=== PATIENT | male | born 1950 | race Caucasian/White ===

== ENCOUNTER 2022-02-23 11:51 | Observation (INO) | payer MEDICARE, OTHER, SELFPAY ==
[2022-02-23] VITALS (21 sets, daily range): BP systolic 122–153; BP diastolic 82–103; PULSE 69–80; RESP 18–20; TEMP 36.2–36.6; O2SAT 94–99; BMI 35.6; BMI 37.5
--- NOTE | 2022-02-23 12:51 | ED.GENADULT ---
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 He has been taking an [id number] supplement to help with weight loss, and he has lost about 28 lb over the last few weeks. The patient denies chest pain breathing problem he is asymptomatic at present other than he noticed some blurry vision and he feels fatigued. He has had no chest pain, no hematuria, he has had an elevated blood sugar that he noted on a family members glucometer that was 300 within the last few days and he was 483 today. He has not had any infectious symptoms, is not on steroids. Patient has had a history kidney stones, and gout, obstructive sleep apnea , hypertension, elevated BMI. Related Data Home Medications Medication Instructions Recorded Confirmed allopurinol 300 mg tablet 300 mg PO DAILY 02/01/22 02/23/22 amlodipine 10 mg tablet 10 mg PO DAILY 02/01/22 02/23/22 ascorbic acid (vitamin C) 1,000 mg 1 g PO DAILY 02/01/22 02/23/22 tablet aspirin 81 mg tablet,delayed 81 mg PO DAILY 02/01/22 02/23/22 release atenolol 50 mg tablet 50 mg PO BID 02/01/22 02/23/22 doxazosin 8 mg tablet 8 mg PO HS 02/01/22 02/23/22 flaxseed oil 1,000 mg capsule 1,000 mg PO DAILY 02/01/22 02/23/22 furosemide 20 mg tablet 20 mg PO DAILY 02/01/22 02/23/22 losartan 50 mg tablet 50 mg PO BID 02/01/22 02/23/22 multivitamin with iron (Daily 1 tab PO DAILY 02/01/22 02/23/22 Multiple Vitamins with Iron tablet) omeprazole 20 mg capsule,delayed 20 mg PO DAILY 02/01/22 02/23/22 release GOLO RELEASE 02/23/22 Previous Rx's Medication Instructions Recorded fluorouracil 5 % topical cream 1 applic topical ONCE #40 grams 02/01/22 Allergies Allergy/AdvReac Type Severity Reaction Status Date / Time hydrochlorothiazide Allergy Intermediate Unknown Verified 02/23/22 12:29 Angiotensin-converting Allergy Intermediate Unknown Uncoded 01/12/22 09:40 enzyme inhibitor Sulfa drugs Allergy Mild Unknown Uncoded 01/12/22 09:40 Review of Systems Status of ROS: Reports: 10 or more systems reviewed and unremarkable except as noted in History and below [facility] Medical History History of renal calculi (05/13/13) Surgical History History of sinus surgery (2007) History of tonsillectomy Status post trigger finger release (2007) Social History Smoking Status: Never smoker Do you use any of these nicotine containing products: None Second hand tobacco smoke exposure: No How often do you have a drink containing alcohol: monthly or less How many standard drinks containing alcohol do you have on a typical day: 1 or 2 How often do you have six or more drinks on one occasion: Never AUDIT-C Alcohol total score: 1 Non-prescribed substance use: denies use Caffeine: No Exam Narrative: Exam Narrative: Objective: In general patient is no apparent distress, pleasant alert orient x3 Noncyanotic HEENT is unremarkable no facial asymmetry Neck is supple Chest is clear Heart rhythm rate rhythm regular without murmur Abdomen obese benign nontender Extremities are no edema neurologic nonfocal Good peripheral perfusion noted Skin warm and dry Const: Vital Signs, click to edit/add: Vital Signs - 24 hr 02/23/22 12:13 02/23/22 13:04 02/23/22 13:05 Temperature 97.1 F L Pulse Rate 78 70 Pulse Rate [Right Pulse Oximeter] 80 Respiratory Rate 18 Blood Pressure 131/103 H Blood Pressure [Ri ght Upper Arm] 133/82 Pulse Oximetry 98 97 97 Oxygen Delivery Me thod Room Air 02/23/22 13:31 02/23/22 13:32 02/23/22 13:33 Temperature Pulse Rate 76 76 71 Pulse Rate [Right Pulse Oximeter] Respiratory Rate Blood Pressure 131/99 H Blood Pressure [Ri ght Upper Arm] Pulse Oximetry 95 96 96 Oxygen Delivery Me thod 02/23/22 14:01 02/23/22 14:02 02/23/22 14:32 Temperature Pulse Rate 75 77 70 Pulse Rate [Right Pulse Oximeter] Respiratory Rate Blood Pressure 122/94 H 134/88 Blood Pressure [Ri ght Upper Arm] Pulse Oximetry 96 96 96 Oxygen Delivery Me thod 02/23/22 14:33 02/23/22 15:01 02/23/22 15:02 Temperature Pulse Rate 79 78 78 Pulse Rate [Right Pulse Oximeter] Respiratory Rate Blood Pressure 130/95 H Blood Pressure [Ri ght Upper Arm] Pulse Oximetry 98 97 96 Oxygen Delivery Me thod 02/23/22 15:31 02/23/22 15:32 Temperature Pulse Rate 75 79 Pulse Rate [Right Pulse Oximeter] Respiratory Rate Blood Pressure 141/90 H Blood Pressure [Ri ght Upper Arm] Pulse Oximetry 96 98 Oxygen Delivery Me thod Course Vital Signs Vital signs: Initial Vital Signs Temperature 97.1 F L 02/23/22 12:13 Temperature Source Temporal Artery Scan 02/23/22 12:13 Pulse Rate 80 02/23/22 12:13 Pulse Rhythm 02/23/22 12:13 Respiratory Rate 18 02/23/22 12:13 Blood Pressure 133/82 02/23/22 12:13 Blood Pressure Mean 99 02/23/22 12:13 Blood Pressure Position Sitting 02/23/22 12:13 Pulse Oximetry 98 02/23/22 12:13 Oxygen Delivery Method 02/23/22 12:13 Vital Signs Temperature 97.1 F L 02/23/22 12:13 Pulse Rate 80 02/23/22 12:13 Respiratory Rate 18 02/23/22 12:13 Blood Pressure 133/82 02/23/22 12:13 Pulse Oximetry 98 02/23/22 12:13 Oxygen Delivery Method 02/23/22 12:13 Temperature 97.9 F 02/23/22 16:57 Pulse Rate 79 02/23/22 16:57 Respiratory Rate 20 02/23/22 16:57 Blood Pressure 153/95 H 02/23/22 16:57 Pulse Oximetry 94 02/23/22 17:23 Oxygen Delivery Method 02/23/22 17:23 Medical Decision Making MDM Narrative Medical decision making narrative: Patient is demonstrating classic symptoms for new onset diabetes mellitus, elevated blood sugar, likely mildly dehydrated. He has noticed some visual changes, polyphagia polydipsia polyuria. Will rehydrate with couple L of saline, EKG labs COVID troponin electrolytes CBC, will consider insulin usage after rehydration. Will check blood sugar venous today. This supplement he was taking should be stopped. He does have an appointment to see Dr. Thomas in the next short appeared of time. Addendum: Patient's labs look reassuring his EKG looks reassuring, his troponin is negative, his renal function is good, his blood sugars elevated at 551. After 2 L fluid patient will get 5 units of regular insulin IV. Also noted he has 50 red cells and 100 white cells per high-powered field in his urine and he will be started on a g of Rocephin, noted to have many bacteria in his urine as well. Lab Data Labs: Lab Results 02/23/22 02/23/22 02/23/22 Range/Units 13:00 13:10 13:10 WBC 6.61 (4.50-11.00) K/uL RBC 4.55 (4.30-5.90) m/uL Hgb 14.2 (13.5-17.5) gm/dL Hct 40.9 (37.0-53.0) % MCV 90 (80-100) fL MCH 31 (26-34) pg MCHC 35 (32-36) gm/dL RDW Coeff of Ciro 11.7 (11.5-15.5) % Plt Count 202 (140-440) K/uL Neut % (Auto) 75.1 H (42.0-72.0) % Lymph % (Auto) 16.9 L (20-44) % Banks % (Auto) 7.3 (0.0-11.0) % Eos % (Auto) 0.2 (0.0-7.0) % Baso % (Auto) 0.3 (0.0-3.0) % Neut # (Auto) 5.00 (1.7-7.0) K/uL Lymph # (Auto) 1.10 (0.90-2.90) K/uL Banks # (Auto) 0.50 (0.00-0.90) K/UL Eos # (Auto) 0.01 (0.00-0.50) K/uL Baso # (Auto) 0.02 (0.00-0.30) K/uL Abs Immat Gran (auto) 0.01 (0.00-0.30) K/uL INR 0.92 (0.91-1.10) Sodium (135-149) mmol/L Potassium (3.6-5.1) mmol/L Chloride (96-114) mmol/L Carbon Dioxide (20-32) mmol/L BUN (7-30) mg/dL Creatinine (0.5-1.5) mg/dL Estimated Creat Clear Estimated GFR ml/min Glucose (60-115) mg/dL Lactate (0.5-1.9) mmol/L Calcium (8.4-10.6) mg/dL Total Bilirubin (0.1-1.5) mg/dL Direct Bilirubin (0.0-0.5) mg/dL AST (12-35) U/L ALT (4-50) U/L Alkaline Phosphatase (40-150) U/L Troponin I (0.01-0.04) ng/mL C-Reactive Protein (0.5-1.0) mg/dL NT-Pro-B Natriuret Pep (0-125) PG/mL Total Protein (6.0-8.3) g/dL Albumin (3.3-5.0) g/dL Amylase (18-89) U/L Urine Color (Yellow) Urine Appearance (Clear) Urine pH (5.0-8.5) Ur Specific [place] (1.000-1.030) Urine Protein (Negative) Urine Glucose (UA) (Negative) Urine Ketones (Negative) Urine Blood (Negative) Urine Nitrite (Negative) Urine Bilirubin (Negative) Urine Urobilinogen (0.2-1.0) Ur Leukocyte Esterase (Negative) Urine RBC (0-2) Urine WBC (0-5) Ur Squamous Epith Cells (None-Few) Amorphous Sediment (None) Urine Bacteria (None) SARS-CoV-2 (PCR) Negative SARS-CoV-2 (Negative) 02/23/22 02/23/22 02/23/22 Range/Units 13:10 13:10 14:57 WBC (4.50-11.00) K/uL RBC (4.30-5.90) m/uL Hgb (13.5-17.5) gm/dL Hct (37.0-53.0) % MCV (80-100) fL MCH (26-34) pg MCHC (32-36) gm/dL RDW Coeff of Ciro (11.5-15.5) % Plt Count (140-440) K/uL Neut % (Auto) (42.0-72.0) % Lymph % (Auto) (20-44) % Banks % (Auto) (0.0-11.0) % Eos % (Auto) (0.0-7.0) % Baso % (Auto) (0.0-3.0) % Neut # (Auto) (1.7-7.0) K/uL Lymph # (Auto) (0.90-2.90) K/uL Banks # (Auto) (0.00-0.90) K/UL Eos # (Auto) (0.00-0.50) K/uL Baso # (Auto) (0.00-0.30) K/uL Abs Immat Gran (auto) (0.00-0.30) K/uL INR (0.91-1.10) Sodium 130 L (135-149) mmol/L Potassium 4.8 (3.6-5.1) mmol/L Chloride 94 L (96-114) mmol/L Carbon Dioxide 22 (20-32) mmol/L BUN 36 H (7-30) mg/dL Creatinine 1.2 (0.5-1.5) mg/dL Estimated Creat Clear 58.30 Estimated GFR 65 ml/min Glucose 551 H* (60-115) mg/dL Lactate 1.4 (0.5-1.9) mmol/L Calcium 9.4 (8.4-10.6) mg/dL Total Bilirubin 0.7 (0.1-1.5) mg/dL Direct Bilirubin 0.3 (0.0-0.5) mg/dL AST 43 H (12-35) U/L ALT 46 (4-50) U/L Alkaline Phosphatase 102 (40-150) U/L Troponin I < 0.01 L (0.01-0.04) ng/mL C-Reactive Protein < 0.5 L (0.5-1.0) mg/dL NT-Pro-B Natriuret Pep 931 H (0-125) PG/mL Total Protein 8.0 (6.0-8.3) g/dL Albumin 4.8 (3.3-5.0) g/dL Amylase 64 (18-89) U/L Urine Color Yellow (Yellow) Urine Appearance Clear (Clear) Urine pH 5.0 (5.0-8.5) Ur Specific [place] 1.010 (1.000-1.030) Urine Protein Negative (Negative) Urine Glucose (UA) 2+ A (Negative) Urine Ketones 1+ A (Negative) Urine Blood Negative (Negative) Urine Nitrite Negative (Negative) Urine Bilirubin Negative (Negative) Urine Urobilinogen 0.2 (0.2-1.0) Ur Leukocyte Esterase Negative (Negative) Urine RBC 25-50 A (0-2) Urine WBC >100 A (0-5) Ur Squamous Epith Cells Few (None-Few) Amorphous Sediment Many A (None) Urine Bacteria Many A (None) SARS-CoV-2 (PCR) (Negative) Discharge Plan Discharge Clinical Impression: Diabetes mellitus, new onset Discharge Location: [facility] Prescriptions: No Action losartan 50 mg tablet 50 mg PO BID doxazosin 8 mg tablet 8 mg PO HS allopurinol 300 mg tablet 300 mg PO DAILY furosemide 20 mg tablet 20 mg PO DAILY amlodipine 10 mg tablet 10 mg PO DAILY omeprazole 20 mg capsule,delayed release(DR/EC) 20 mg PO DAILY atenolol 50 mg tablet 50 mg PO BID multivitamin with iron [Daily Multiple Vitamins/Iron] Tablet 1 tab PO DAILY aspirin 81 mg tablet,delayed release (DR/EC) 81 mg PO DAILY flaxseed oil 1,000 mg capsule 1,000 mg PO DAILY ascorbic acid (vitamin C) 1,000 mg tablet 1 g PO DAILY fluorouracil 5 % cream 1 applic topical ONCE Qty: 40 0RF GOLO RELEASE Rx Instructions: 1 TAB THREE TIMES A DAY WITH MEALS - SEE SITE FOR DETAILS [email or web address] Follow Up/Referrals: Charles Thomas MD [Primary Care Provider] -
[2022-02-23 13:15] LABS: Lactate* 1.4 mmol/L (0.5-1.9)
[2022-02-23 13:21] LABS: Basophils Absolute Auto 0.02 K/uL (0.00-0.30); Basophils Percent Auto 0.3 % (0.0-3.0); Eosinophils Absolute Auto 0.01 K/uL (0.00-0.50); Eosinophils Percent Auto 0.2 % (0.0-7.0); Hematocrit 40.9 % (37.0-53.0); Hemoglobin* 14.2 gm/dL (13.5-17.5); Immature Granulocytes Abs Auto 0.01 K/uL (0.00-0.30); Lymphocytes Percent Auto 16.9 % (20-44); Mean Corpuscular HGB Conc 35 gm/dL (32-36); Mean Corpuscular Hemoglobin 31 pg (26-34); Mean Corpuscular Volume 90 fL (80-100); Monocytes Percent Auto 7.3 % (0.0-11.0); Neutrophils Percent Auto 75.1 % (42.0-72.0); Platelet Count* 202 K/uL (140-440); RDW Coefficient of Variation % 11.7 % (11.5-15.5); Red Blood Count 4.55 m/uL (4.30-5.90); White Blood Count* 6.61 K/uL (4.50-11.00)
[2022-02-23] MEDS: ASPIRIN 81 MG TAB.CHEW 324 MG PO (13:22)
[2022-02-23] MEDS: 0.9 % SODIUM CHLORIDE 1000 ml 1,000 ML 6000 ML IV ×2 (13:22→14:50)
[2022-02-23 13:24] LABS: Slide Review Reflex No
[2022-02-23 13:43] LABS: Albumin* 4.8 g/dL (3.3-5.0); Chloride* 94 mmol/L (96-114)
[2022-02-23 13:44] LABS: Potassium* 4.8 mmol/L (3.6-5.1); Sodium* 130 mmol/L (135-149)
[2022-02-23 13:45] LABS: INR 0.92 (0.91-1.10); Prothrombin Time 12.7 Seconds
[2022-02-23 13:46] LABS: Amylase* 64 U/L (18-89); Creatinine* 1.2 mg/dL (0.5-1.5); Estimated Glomerular Filt Rate 65 ml/min
[2022-02-23 13:47] LABS: Alanine Aminotransferase* 46 U/L (4-50); Alkaline Phosphatase* 102 U/L (40-150); Aspartate Amino Transferase* 43 U/L (12-35); Bilirubin Direct* 0.3 mg/dL (0.0-0.5); Bilirubin Total* 0.7 mg/dL (0.1-1.5); Blood Urea Nitrogen* 36 mg/dL (7-30); Calcium* 9.4 mg/dL (8.4-10.6); Carbon Dioxide* 22 mmol/L (20-32)
[2022-02-23 13:54] LABS: NT Pro B Type NatriureticPept* 931 PG/mL (0-125)
[2022-02-23 13:57] LABS: SARS PCR* Negative SARS-CoV-2 (Negative)
[2022-02-23 14:03] LABS: C Reactive Protein* < 0.5 mg/dL (0.5-1.0); Glucose* 551 mg/dL (60-115); Troponin I* < 0.01 ng/mL (0.01-0.04)
[2022-02-23 15:12] LABS: Appearance Urine Clear (Clear); Bilirubin Urine Negative (Negative); Blood Urine Negative (Negative); Color Urine Yellow (Yellow); Glucose Urine 2+ (Negative); Ketones Urine 1+ (Negative); Leukocyte Esterase Urine Negative (Negative); Nitrite Urine Negative (Negative); Protein Urine Negative (Negative); Urobilinogen Urine 0.2 (0.2-1.0)
[2022-02-23 15:28] LABS: Amorphous Sediment Urine Many; Bacteria Urine Many; RBC Urine 25-50 (0-2); Squamous Epithelial Cell Urine Few (None-Few); WBC Urine >100 (0-5)
--- NOTE | 2022-02-23 15:28 | W.PC.EDHO ---
Primary Language: Preferred Language: Orientation Status: [x] Alert & Oriented [] Slight Confusion [] Known Dx Dementia Transfers By: [x] Assist of 1 [] Assist of 2 [] Lift Active Medications Discontinued Medications Generic Name Dose Route Start Last Admin Trade Name Miguel PRN Reason Stop Dose Admin Aspirin 324 mg 02/23/22 13:17 02/23/22 13:22 Aspirin 81 Mg Tab.Chew PO 02/23/22 13:18 324 mg ONCE ONE Administration Sodium Chloride 1,000 mls @ 6,000 mls/hr 02/23/22 12:45 02/23/22 14:50 0.9 % Sodium Chloride 1000 Ml IV 02/23/22 12:54 Infused .Q10M GA Infusion Sodium Chloride 1,000 mls @ 6,000 mls/hr 02/23/22 12:45 02/23/22 14:50 0.9 % Sodium Chloride 1000 Ml IV 02/23/22 12:54 6,000 mls/hr .Q10M GA Administration Insulin Human Regular 5 unit 02/23/22 14:32 02/23/22 15:21 Insulin Regular 100 Unit/Ml Inj IVP 02/23/22 14:33 5 unit ONCE ONE Administration Description of Symptoms ED Triage Present Problem patient has noticed over the past couple of days a Description decline with feeling more weak. has sx of blurred vision, double vision, lost 30 pounds in 2 months intentional, increased urination, thirsty. taking release nutraceutical dietary supplement with each meal. taken blood sugar 489 today after eaten a meal. concerned of having DM ED Triage Date of Onset of 02/23/22 Symptoms [place] Coma Scale Irwin coma scale total score 15 IV Insertion/Site Date of IV Line Insertion [ 02/23/22 Right Antecubital] Oxygen Administration Pulse Oximetry 98 Pulse Oximetry 96 Pulse Oximetry 96 Pulse Oximetry 96 Pulse Oximetry 96 Pulse Oximetry 96 Pulse Oximetry 95 Pulse Oximetry 97 Pulse Oximetry 97 Pulse Oximetry 98 Oxygen Delivery Method Room Air Cardiac Monitoring EKG Method 12 Lead
[2022-02-23] MEDS: cefTRIAXone 1 GM in 0.9 % SODIUM CHLORIDE Mini-bag 100 ML IVPB (16:00)
--- NOTE | 2022-02-23 17:53 | P.IMHP_ITS ---
Hospitalist- H&P: HPI History of Present Illness Date Seen: 02/23/22 Chief complaint: fatigue,high blood sugar Narrative: ADMISSION HISTORY AND PHYSICAL - HOSPITALIST Chief Complaint: My blood sugars are high, apparently. My vision is screwy and I feel terrible. HPI: 71-year-old newly diagnosed type 2 diabetic presents with blurry vision, weakness, shortness of breath. He has felt unwell for about 5 days. He said it started with generalized weakness and shortness of breath. He describes some dyspnea on exertion. No chest pain. No lateralizing or specific weakness, described as generalized ?I do not feel well? feeling. No fever, vomiting, diarrhea. His spouse has been well. He noticed a couple of days ago that his vision was getting blurry. His sister is a diabetic and checked his blood sugar. It was over 400 this morning. He felt likely this was related to undia gnosed diabetes and was on his way to a clinic appointment when the clinic closed secondary to mechanical issues and instead directed him to the ED. of note, he has also been taking this weight loss supplement, GoLo, with chromium and has lost weight but is now concerned this is at the root of his issues. In the ED he was noted to have AFib on the EKG/monitor, albeit rate controlled. This is new information to him. His blood sugar was over 500. No evidence of DKA. He also has white blood cells in his urine, with positive bacteria. However no leukocyte esterase or nitrite. Asymptomatic. Hospital medicine team was asked to admit overnight for stabilization of his blood sugars, evaluation of his new AFib, and Education and and likely new medications needed. I've updated the PFSH, medications and allergies in the [place] tabs. INVESTIGATIONS: LABS/MICRO/ECG/IMAGING CBC is essentially normal. INR 0.9 Sodium is 130 but corrects to 137 given his hyperglycemia Chloride 94 Creatinine 1.2 with a BUN of 36 Blood glucose 551 AST mildly elevated at 43 BNP 931 Normal troponin, normal C reactive protein UA shows greater than 100 white blood cells, red blood cells at 25-50. SARs COVID negative EKG shows AFib, left axis deviation, nonspecific T-wave abnormalities Urine culture pending REVIEW OF SYSTEMS: 12-point ROS completed with patient and negative unless otherwise stated in HPI or below. PHYSICAL EXAM: CODE STATUS: FULL CODE CONSTITUTIONAL: Conversive, good historian. A/O. Knows setting and context. VITAL SIGNS: see record. HEENT: Normocephalic, atraumatic. PERRL, EOMI, conjunctivae pink, no scleral icterus. Ears and nose externally normal. Pharynx normal. NECK: No JVD. No carotid bruit, no thyromegaly, no adenopathy. CHEST: Clear to auscultation bilaterally HEART: S1 and S2 normal. No harsh murmurs. Edema MUSCULOSKELETAL: No gross joint deformity or swelling. NEURO: Cranial nerves intact. Grossly intact. No asymmetric findings. SKIN: No rashes, petechiae, concerning changes PSYCHIATRIC: Euthymic. ADMIT TO MEDSURG: FLOOR CARE DVT: Lovenox GI: PO intake, PPI Time spent: 70 minutes examining patient, conferring with family and patient, care staff, developing care plan [facility] Medical History (Updated 02/23/22 @ 18:40 by Shelly Carrasquillo MD) Atrial fibrillation with controlled ventricular rate Diabetes mellitus type 2 in obese Essential hypertension Gastroesophageal reflux disease Gout (2014) H/O renal calculi Obstructive sleep apnea treated with continuous positive airway pressure (CPAP) Surgical History History of nasal septoplasty History of sinus surgery (2007) History of tonsillectomy History of tonsillectomy and adenoidectomy Status post trigger finger release (2007) Family History Mother Diabetes Father High blood pressure Social History (Updated 02/23/22 @ 18:26 by Shelly Carrasquillo MD) Narrative: 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 Graduated from [employer] to [employer] for greater than 50 years. Adult children. [place] [address] [facility]. Smoking Status: Never smoker Do you use any of these nicotine containing products: None Second hand tobacco smoke exposure: No How often do you have a drink containing alcohol: monthly or less How many standard drinks containing alcohol do you have on a typical day: 1 or 2 How often do you have six or more drinks on one occasion: Never AUDIT-C Alcohol total score: 1 Non-prescribed substance use: denies use Caffeine: No Meds Home Medications and Allergies Home Medications Medication Instructions Recorded Confirmed Type allopurinol 300 mg tablet 300 mg PO DAILY 02/01/22 02/23/22 History amlodipine 10 mg tablet 10 mg PO DAILY 02/01/22 02/23/22 History ascorbic acid (vitamin C) 1,000 mg 1 g PO DAILY 02/01/22 02/23/22 History tablet aspirin 81 mg tablet,delayed 81 mg PO DAILY 02/01/22 02/23/22 History release atenolol 50 mg tablet 50 mg PO BID 02/01/22 02/23/22 History doxazosin 8 mg tablet 8 mg PO HS 02/01/22 02/23/22 History flaxseed oil 1,000 mg capsule 1,000 mg PO DAILY 02/01/22 02/23/22 History furosemide 20 mg tablet 20 mg PO DAILY 02/01/22 02/23/22 History losartan 50 mg tablet 50 mg PO BID 02/01/22 02/23/22 History multivitamin with iron (Daily 1 tab PO DAILY 02/01/22 02/23/22 History Multiple Vitamins with Iron tablet) omeprazole 20 mg capsule,delayed 20 mg PO DAILY 02/01/22 02/23/22 History release GOLO RELEASE 02/23/22 History Allergies Allergy/AdvReac Type Severity Reaction Status Date / Time hydrochlorothiazide Allergy Intermediate Unknown Verified 02/23/22 12:29 Angiotensin-converting Allergy Intermediate Unknown Uncoded 01/12/22 09:40 enzyme inhibitor Sulfa drugs Allergy Mild Unknown Uncoded 01/12/22 09:40 Exam Const: Vital Signs, click to edit/add: Vital Signs - 24 hr 02/23/22 12:13 02/23/22 13:04 02/23/22 13:05 Temperature 97.1 F L Pulse Rate 78 70 Pulse Rate [Apical ] Pulse Rate [Right Pulse Oximeter] 80 Respiratory Rate 18 Blood Pressure 131/103 H Blood Pressure [Le ft Arm] Blood Pressure [Ri ght Upper Arm] 133/82 Pulse Oximetry 98 97 97 Oxygen Delivery Me thod Room Air 02/23/22 13:31 02/23/22 13:32 02/23/22 13:33 Temperature Pulse Rate 76 76 71 Pulse Rate [Apical ] Pulse Rate [Right Pulse Oximeter] Respiratory Rate Blood Pressure 131/99 H Blood Pressure [Le ft Arm] Blood Pressure [Ri ght Upper Arm] Pulse Oximetry 95 96 96 Oxygen Delivery Me thod 02/23/22 14:01 02/23/22 14:02 02/23/22 14:32 Temperature Pulse Rate 75 77 70 Pulse Rate [Apical ] Pulse Rate [Right Pulse Oximeter] Respiratory Rate Blood Pressure 122/94 H 134/88 Blood Pressure [Le ft Arm] Blood Pressure [Ri ght Upper Arm] Pulse Oximetry 96 96 [facility] 02[facility] 14:33 02/23/22 15:01 02/23/22 15:02 Temperature Pulse Rate 79 78 78 Pulse Rate [Apical ] Pulse Rate [Right Pulse Oximeter] Respiratory Rate Blood Pressure 130/95 H Blood Pressure [Le ft Arm] Blood Pressure [Ri ght Upper Arm] Pulse Oximetry 98 97 96 [facility] 02/23/22 15:31 02/23/22 15:32 02/23/22 16:01 Temperature Pulse Rate 75 79 71 Pulse Rate [Apical ] Pulse Rate [Right Pulse Oximeter] Respiratory Rate Blood Pressure 141/90 H 127/89 Blood Pressure [Le ft Arm] Blood Pressure [Ri ght Upper Arm] Pulse Oximetry 96 98 96 [facility] 02/23/22 16:02 02/23/22 16:57 02/23/22 17:23 Temperature 97.9 F Pulse Rate 78 Pulse Rate [Apical ] 79 Pulse Rate [Right Pulse Oximeter] Respiratory Rate 20 Blood Pressure Blood Pressure [Le ft Arm] 153/95 H Blood Pressure [Ri ght Upper Arm] Pulse Oximetry 96 94 94 [facility] Room Air Hospitalist - H&P: Result Labs Labs: Short CBC 02/23/22 Range/Units 13:10 WBC 6.61 (4.50-11.00) K/uL Hgb 14.2 (13.5-17.5) gm/dL Hct 40.9 (37.0-53.0) % Plt Count 202 (140-440) K/uL BMP 02/23/22 13:10 Sodium 130 L Potassium 4.8 Chloride 94 L Carbon Dioxide 22 BUN 36 H Creatinine 1.2 Glucose 551 H* Calcium 9.4 Cardiac Enzymes 02/23/22 Range/Units 13:10 Troponin I < 0.01 L (0.01-0.04) ng/mL Liver Function 02/23/22 Range/Units 13:10 Total Bilirubin 0.7 (0.1-1.5) mg/dL Direct Bilirubin 0.3 (0.0-0.5) mg/dL AST 43 H (12-35) U/L ALT 46 (4-50) U/L Alkaline Phosphatase 102 (40-150) U/L Albumin 4.8 (3.3-5.0) g/dL Urine 02/23/22 Range/Units 14:57 Urine Color Yellow (Yellow) Urine Appearance Clear (Clear) Urine pH 5.0 (5.0-8.5) Ur Specific [place] 1.010 (1.000-1.030) Urine Protein Negative (Negative) Urine Glucose (UA) 2+ A (Negative) Assessment and Plan Assessment and plan (1) Diabetes mellitus, new onset: Status: Acute Assessment and Plan: A1c was initially elevated to 8.5 in August of 2021. However patient did not know this. A1c pending. Blood glucose monitoring, sliding scale insulin initiated. Metformin initiated. Diabetic Education tomorrow. We will di jacqueline with all of his supplies needed. (2) Atrial fibrillation with controlled ventricular rate: Status: Acute Assessment and Plan: Unclear history. Initiate oral anticoagulation. At this time he is rate controlled. He is already on a beta-juan miguel. Monitor. Echo. Zio patch. (3) Urine leukocytes: Status: Acute Assessment and Plan: Unclear clinical significance. He was given 1 g of Rocephin in the ED. Urine culture is pending. Will continue to await culture results and transition to oral antibiotics if needed. (4) Obstructive sleep apnea treated with continuous positive airway pressure (CPAP): Status: Acute Assessment and Plan: He is compliant with CPAP. I have asked his to go get his unit and bring it in. (5) Morbid obesity: Status: Acute Assessment and Plan: Lifetime high was 276. He is down 248. He will need ongoing nutritional counseling. (6) Essential hypertension: Status: Acute Assessment and Plan: Any home med regimen (7) Gastroesophageal reflux disease: Status: Acute Assessment and Plan: Continue home med regimen (8) Gout: Status: Acute Assessment and Plan: Continue home med regimen
[2022-02-23 18:47] LABS: Hemoglobin A1C* 13.33 % (0-5.6)
[2022-02-23] MEDS: atenoloL 50 MG TABLET PO (22:04)
[2022-02-23] MEDS: DOXAZOSIN 4 MG TABLET 8 MG PO (22:04)
[2022-02-23] MEDS: METFORMIN ER 500 MG PO (22:04)
[2022-02-23] MEDS: OMEPRAZOLE 20 MG CAPSULE DR PO (22:04)
[2022-02-23] MEDS: LOSARTAN POTASSIUM 50 MG TABLET PO (22:04)
[2022-02-23] MEDS: APIXABAN 5 MG TABLET PO (22:05)
--- NOTE | 2022-02-23 23:38 | PC.NURSE ---
Shift note: The pt has been very pleasant and cooperative. He has been learning important info about new diagnosis he said. He said he has been feeling better since admission. HR has been in the 60s, 70s, and 80s. The pt has been denying chest pain, short of breath and dizzy. Insulin given per protocol for 373 blood sugar at HS. The pt appeared without any distress.
[2022-02-24] VITALS (9 sets, daily range): BP systolic 102–146; BP diastolic 67–100; PULSE 68–87; RESP 16–18; TEMP 36.4–37.1; O2SAT 95–96
--- NOTE | 2022-02-24 07:22 | PC.NURSE ---
Shift Note 07-23: Pt pleasant and cooperative, up ad noni in room, VSS with slightly elevated BPs, afebrile, LS clear, BS active. BG 287 @ 0200 check, see eMAR for medication administration. Tele shows a-fib with normal ventricular rate.
[2022-02-24 07:47] LABS: Albumin* 4.1 g/dL (3.3-5.0)
[2022-02-24 07:48] LABS: Chloride* 100 mmol/L (96-114); Potassium* 4.1 mmol/L (3.6-5.1); Sodium* 135 mmol/L (135-149)
[2022-02-24 07:49] LABS: Cholesterol* 208 mg/dL (90-199)
[2022-02-24 07:50] LABS: Alanine Aminotransferase* 50 U/L (4-50); Alkaline Phosphatase* 86 U/L (40-150); Aspartate Amino Transferase* 77 U/L (12-35); Bilirubin Total* 0.6 mg/dL (0.1-1.5); Blood Urea Nitrogen* 23 mg/dL (7-30); Carbon Dioxide* 26 mmol/L (20-32); Creatinine* 0.8 mg/dL (0.5-1.5); Est. Creatinine Clearance* 69.96; Estimated Glomerular Filt Rate 95 ml/min; Gamma Glutamyl Transpeptidase* 83 U/L (8-55); Glucose* 270 mg/dL (60-115); Total Protein* 7.4 g/dL (6.0-8.3); Triglycerides* 259 mg/dL (40-149); Uric Acid* 5.1 mg/dL (2.2-8.4)
[2022-02-24 07:56] LABS: Calcium* 8.7 mg/dL (8.4-10.6); HDL Cholesterol* 25 mg/dL (>=40); LDL Cholesterol Calculated 131 mg/dL (<100)
[2022-02-24 08:01] LABS: NT Pro B Type NatriureticPept* 571 PG/mL (0-125)
[2022-02-24 08:10] LABS: Troponin I* < 0.01 ng/mL (0.01-0.04)
[2022-02-24] MEDS: METFORMIN ER 500 MG PO (08:52)
[2022-02-24] MEDS: ASPIRIN 81 MG TABLET EC PO (08:52)
[2022-02-24] MEDS: atenoloL 50 MG TABLET PO ×2 (08:52→20:43)
[2022-02-24] MEDS: APIXABAN 5 MG TABLET PO ×2 (08:53→20:44)
[2022-02-24] MEDS: AMLODIPINE 10 MG TABLET PO (08:53)
[2022-02-24] MEDS: LOSARTAN POTASSIUM 50 MG TABLET PO ×2 (08:53→20:43)
[2022-02-24] MEDS: allopurinoL 300 MG TABLET PO (08:53)
[2022-02-24] MEDS: FUROSEMIDE 20 MG TABLET PO (09:01)
--- NOTE | 2022-02-24 10:40 | P.IMPN_ITS ---
Progress Note: A&P Assessment and plan (1) Atrial fibrillation with controlled ventricular rate: Problem details: CHADS-VASC of 3. Eliquis initiated 02/23. Status: Acute Assessment and Plan: Will transition from BID Atenolol to once daily Metoprolol (can't always take his HS dose of Atenolol at a consistent time) to continue rate control. Started on Eliquis 02/24, will continue this upon discharge. TTE to be performed today to evaluate LVEF. No history of CHF, does take Lasix as an outpatient daily for edema. (2) Diabetes mellitus, new onset: Problem details: A1C 13.3 on 02/23 Status: Acute Assessment and Plan: A1C was 8.5 in August 2021 (patient did not receive result). He has been eating a lot of fruit as unopposed carbohydrates, while working on weight loss. He has also had polydipsia and has been drinking a fair amount of soda recently. He feels very motivated about bringing his A1c down with diet, exercise, and Metformin. No GI upset or diarrhea with initial doses of Metformin at 500mg, will increase to 1000mg BID. He will see the department clerk and dietitian today, and have close outpatient f/u with PCP (Dr. Thomas). (3) Urine leukocytes: Status: Acute Assessment and Plan: Urine culture pending, NGTD. Continue Rocephin while awaiting results. (4) Obstructive sleep apnea treated with continuous positive airway pressure (CPAP): Status: Acute Assessment and Plan: Continue home CPAP. (5) Gastroesophageal reflux disease: Status: Acute Assessment and Plan: Stable, continue PPI (6) Essential hypertension: Status: Acute Assessment and Plan: Continue Losartan, Amlodipine, and BB. BP is slightly above age-appropriate goal, anticipate this will improve when patient is home and more active. Routine outpatient f/u for BP management. Plan Per above. Continue Eliquis for prophylaxis. Anticipate discharge home with tomorrow, pending results of echocardiogram and tolerance of new medications. Time Spent With Patient Total time spent: 45, >75% in counseling, discussion of new diagnoses, care coordination with multidisciplinary team. Subjective Date Seen: 02/24/22 Interval history: Murray and his have no concerns this morning. BG has come down to <300. He denies CP, dyspnea. Polyuria and polydipsia have improved since admission. No dysuria or fevers. Exam Narrative: Exam Narrative: GEN: Alert and oriented, sitting comfortably in bed and answering questions appropriately HEENT: Normal external ears, EOMIs bilaterally, no scleral icterus CV: Irregularly irregular with rate in 60s, No concerning murmurs, rubs, or gallops R: LCTA bilaterally without concerning wheezing, rales, or rhonchi Ext: wwp, trace ankle edema bilaterally Skin: No concerning skin lesions or rashes on exposed skin Neuro: Nonfocal Psych: Appropriate Const: Vital Signs, click to edit/add: Vital Signs - 24 hr 02/23/22 12:13 02/23/22 13:04 02/23/22 13:05 Temperature 97.1 F L Pulse Rate 78 70 Pulse Rate [Apical ] Pulse Rate [Right Pulse Oximeter] 80 Respiratory Rate 18 Blood Pressure 131/103 H Blood Pressure [Le ft Arm] Blood Pressure [Ri ght Upper Arm] 133/82 Pulse Oximetry 98 97 97 [facility] 02/23/22 13:31 02/23/22 13:32 02/23/22 13:33 Temperature Pulse Rate 76 76 71 Pulse Rate [Apical ] Pulse Rate [Right Pulse Oximeter] Respiratory Rate Blood Pressure 131/99 H Blood Pressure [Le ft Arm] Blood Pressure [Ri ght Upper Arm] Pulse Oximetry 95 96 96 [facility] 02/23/22 14:01 02/23/22 14:02 02/23/22 14:32 Temperature Pulse Rate 75 77 70 Pulse Rate [Apical ] Pulse Rate [Right Pulse Oximeter] Respiratory Rate Blood Pressure 122/94 H 134/88 Blood Pressure [Le ft Arm] Blood Pressure [Ri ght Upper Arm] Pulse Oximetry 96 96 96 [facility] 02/23/22 14:33 02/23/22 15:01 02/23/22 15:02 Temperature Pulse Rate 79 78 78 Pulse Rate [Apical ] Pulse Rate [Right Pulse Oximeter] Respiratory Rate Blood Pressure 130/95 H Blood Pressure [Le ft Arm] Blood Pressure [Ri ght Upper Arm] Pulse Oximetry 98 97 96 [facility] 02/23/22 15:31 02/23/22 15:32 02/23/22 16:01 Temperature Pulse Rate 75 79 71 Pulse Rate [Apical ] Pulse Rate [Right Pulse Oximeter] Respiratory Rate Blood Pressure 141/90 H 127/89 Blood Pressure [Le ft Arm] Blood Pressure [Ri ght Upper Arm] Pulse Oximetry 96 98 96 Oxygen Delivery Vt thod 02/23/22 16:02 02/23/22 16:57 02/23/22 17:23 Temperature 97.9 F Pulse Rate 78 Pulse Rate [Apical ] 79 Pulse Rate [Right Pulse Oximeter] Respiratory Rate 20 Blood Pressure Blood Pressure [Le ft Arm] 153/95 H Blood Pressure [Ri ght Upper Arm] Pulse Oximetry 96 94 94 [facility] Room Air 02/23/22 18:20 02/23/22 18:22 02/23/22 20:00 Temperature 97.9 F Pulse Rate 69 Pulse Rate [Apical ] 73 Pulse Rate [Right Pulse Oximeter] Respiratory Rate 20 Blood Pressure Blood Pressure [Le ft Arm] 148/94 H Blood Pressure [Ri ght Upper Arm] Pulse Oximetry 99 Oxygen Delivery [facility] Room Air Room Air 02/23/22 23:00 02/24/22 00:00 02/24/22 03:06 Temperature 97.9 F 97.6 F Pulse Rate Pulse Rate [Apical ] 69 69 69 Pulse Rate [Right Pulse Oximeter] Respiratory Rate 18 18 16 Blood Pressure Blood Pressure [Le ft Arm] 146/100 H 144/67 H Blood Pressure [Ri ght Upper Arm] Pulse Oximetry 95 95 Oxygen Delivery [facility] Room Air Room Air 02/23/22 23:00 Temperature Pulse Rate 71 Pulse Rate [Apical ] Pulse Rate [Right Pulse Oximeter] Respiratory Rate Blood Pressure Blood Pressure [Le ft Arm] Blood Pressure [Ri ght Upper Arm] Pulse Oximetry [facility] Labs: Laboratory Results - last 24 hr 02/23/22 02/23/22 02/23/22 13:00 13:10 13:10 WBC 6.61 RBC 4.55 Hgb 14.2 Hct 40.9 MCV 90 MCH 31 MCHC 35 RDW Coeff of Ciro 11.7 Plt Count 202 Neut % (Auto) 75.1 H Lymph % (Auto) 16.9 L [place] % (Auto) 7.3 Eos % (Auto) 0.2 Baso % (Auto) 0.3 Neut # (Auto) 5.00 Lymph # (Auto) 1.10 [place] # (Auto) 0.50 Eos # (Auto) 0.01 Baso # (Auto) 0.02 Abs Immat Gran (auto) 0.01 INR 0.92 Sodium Potassium Chloride Carbon Dioxide BUN Creatinine Estimated Creat Clear Estimated GFR Glucose Hemoglobin A1c Lactate Uric Acid Calcium Total Bilirubin Direct Bilirubin GGT AST ALT Alkaline Phosphatase Troponin I C-Reactive Protein NT-Pro-B Natriuret Pep Total Protein Albumin Triglycerides Cholesterol LDL Cholesterol, Calc HDL Cholesterol Amylase TSH Urine Color Urine Appearance Urine pH Ur Specific [place] Urine Protein Urine Glucose (UA) Urine Ketones Urine Blood Urine Nitrite Urine Bilirubin Urine Urobilinogen Ur Leukocyte Esterase Urine RBC Urine WBC Ur Squamous Epith Cells Amorphous Sediment Urine Bacteria SARS-CoV-2 (PCR) Negative SARS-CoV-2 02/23/22 02/23/22 02/23/22 13:10 13:10 13:10 WBC RBC Hgb Hct MCV MCH MCHC RDW Coeff of Ciro Plt Count Neut % (Auto) Lymph % (Auto) [place] % (Auto) Eos % (Auto) Baso % (Auto) Neut # (Auto) Lymph # (Auto) [place] # (Auto) Eos # (Auto) Baso # (Auto) Abs Immat Gran (auto) INR Sodium 130 L Potassium 4.8 Chloride 94 L Carbon Dioxide 22 BUN 36 H Creatinine 1.2 Estimated Creat Clear 58.30 Estimated GFR 65 Glucose 551 H* Hemoglobin A1c 13.33 H Lactate 1.4 Uric Acid Calcium 9.4 Total Bilirubin 0.7 Direct Bilirubin 0.3 GGT AST 43 H ALT 46 Alkaline Phosphatase 102 Troponin I < 0.01 L C-Reactive Protein < 0.5 L NT-Pro-B Natriuret Pep 931 H Total Protein 8.0 Albumin 4.8 Triglycerides Cholesterol LDL Cholesterol, Calc HDL Cholesterol Amylase 64 TSH Urine Color Urine Appearance Urine pH Ur Specific [place] Urine Protein Urine Glucose (UA) Urine Ketones Urine Blood Urine Nitrite Urine Bilirubin Urine Urobilinogen Ur Leukocyte Esterase Urine RBC Urine WBC Ur Squamous Epith Cells Amorphous Sediment Urine Bacteria SARS-CoV-2 (PCR) 02/23/22 02/24/22 02/24/22 14:57 07:00 07:00 WBC RBC Hgb Hct MCV MCH MCHC RDW Coeff of Ciro Plt Count Neut % (Auto) Lymph % (Auto) [place] % (Auto) Eos % (Auto) Baso % (Auto) Neut # (Auto) Lymph # (Auto) [place] # (Auto) Eos # (Auto) Baso # (Auto) Abs Immat Gran (auto) INR Sodium 135 Potassium 4.1 Chloride 100 Carbon Dioxide 26 BUN 23 Creatinine 0.8 Estimated Creat Clear 69.96 Estimated GFR 95 Glucose 270 H Hemoglobin A1c Lactate Uric Acid 5.1 Calcium 8.7 Total Bilirubin 0.6 Direct Bilirubin GGT 83 H AST 77 H ALT 50 Alkaline Phosphatase 86 Troponin I < 0.01 L C-Reactive Protein NT-Pro-B Natriuret Pep 571 H Total Protein 7.4 Albumin 4.1 Triglycerides 259 H Cholesterol 208 H LDL Cholesterol, Calc 131 H HDL Cholesterol 25 L Amylase TSH 1.330 Urine Color Yellow Urine Appearance Clear Urine pH 5.0 Ur Specific [place] 1.010 Urine Protein Negative Urine Glucose (UA) 2+ A Urine Ketones 1+ A Urine Blood Negative Urine Nitrite Negative Urine Bilirubin Negative Urine Urobilinogen 0.2 Ur Leukocyte Esterase Negative Urine RBC 25-50 A Urine WBC >100 A Ur Squamous Epith Cells Few Amorphous Sediment Many A Urine Bacteria Many A SARS-CoV-2 (PCR)
--- NOTE | 2022-02-24 11:21 | NUTR.NU ---
RDN with MD nutrition consult for diabetic teaching. Patient and (designated caregiver) was present for visit. Diabetic diet education provided. Discussed basics of carbohydrate counting including sources of carbohydrates, serving sizes, and label reading. Discussed using the plate method for carbohydrate-controlled, balanced meals that include ? plate non-starchy vegetables, ? plate protein, and 3-4 servings of carbohydrates per meal (fruit, whole grains, legumes, milk, yogurt) and 1-2 per snack. Handouts provided to support discussion. RDN contact information provided and encouraged patient to call with questions. RDN to follow up as needed.
[2022-02-24] MEDS: cefTRIAXone 1 GM in 0.9 % SODIUM CHLORIDE Mini-bag 100 ML IVPB (15:48)
[2022-02-24] MEDS: METFORMIN ER 500 MG 1000 MG PO ×2 (16:46→16:57)
--- NOTE | 2022-02-24 20:38 | PC.NURSE ---
: pt. up independently in room. Tele showing A-fib w/normal ventricular rate. Denies pain or shortness of breath. BGs 298,407, 396 and 392 at rechecks. Sliding scale insulin administered per order; updated MD of BGs. Education provided on diet, exercise, medications, s/s to watch for and glucose testing. Pt. very receptive to teaching, including re: carbohydrate counting. Spouse to bulk picker glucometer from pharmacy before visiting tomorrow AM. Pt. up walking in halls this shift.
[2022-02-24] MEDS: DOXAZOSIN 4 MG TABLET 8 MG PO (20:43)
[2022-02-24] MEDS: OMEPRAZOLE 20 MG CAPSULE DR PO (20:44)
[2022-02-25 02:40] VITALS: BP 142/94; PULSE 76; RESP 16; TEMP 36.8; O2SAT 96
--- NOTE | 2022-02-25 05:16 | PC.NURSE ---
Shift 7p-7a: Pt. AOx4, following commands, VSS on RA. Tele monitoring in place, A.Fib w/ NVR on monitor. Pt. uses home CPAP overnight. Pt. ambulating independently to toilet and in room. Pt. asks appropriate questions regarding new diagnosis, educated on importance of medication compliance and regular blood glucose level monitoring. Plan for discharge home today
[2022-02-25 07:12] LABS: Basophils Absolute Auto 0.03 K/uL (0.00-0.30); Basophils Percent Auto 0.5 % (0.0-3.0); Eosinophils Absolute Auto 0.07 K/uL (0.00-0.50); Eosinophils Percent Auto 1.1 % (0.0-7.0); Hematocrit 42.1 % (37.0-53.0); Hemoglobin* 14.6 gm/dL (13.5-17.5); Immature Granulocytes Abs Auto 0.02 K/uL (0.00-0.30); Lymphocytes Absolute Auto 1.52 K/uL (0.90-2.90); Lymphocytes Percent Auto 24.6 % (20-44); Mean Corpuscular HGB Conc 35 gm/dL (32-36); Mean Corpuscular Hemoglobin 32 pg (26-34); Mean Corpuscular Volume 91 fL (80-100); Monocytes Percent Auto 8.6 % (0.0-11.0); Neutrophils Absolute Auto 4.02 K/uL (1.7-7.0); Neutrophils Percent Auto 64.9 % (42.0-72.0); Platelet Count* 201 K/uL (140-440); RDW Coefficient of Variation % 11.7 % (11.5-15.5); Red Blood Count 4.62 m/uL (4.30-5.90); White Blood Count* 6.19 K/uL (4.50-11.00)
[2022-02-25 07:15] VITALS: PULSE 68
[2022-02-25 07:30] VITALS: BP 136/88; PULSE 76; RESP 18; TEMP 36.6; O2SAT 94
[2022-02-25 07:32] LABS: Chloride* 99 mmol/L (96-114); Potassium* 3.8 mmol/L (3.6-5.1); Sodium* 135 mmol/L (135-149)
[2022-02-25 07:35] LABS: Carbon Dioxide* 26 mmol/L (20-32); Creatinine* 0.8 mg/dL (0.5-1.5); Est. Creatinine Clearance* 69.96; Estimated Glomerular Filt Rate 95 ml/min
[2022-02-25 07:36] LABS: Blood Urea Nitrogen* 25 mg/dL (7-30); Calcium* 8.6 mg/dL (8.4-10.6); Glucose* 236 mg/dL (60-115)
[2022-02-25 07:47] LABS: Slide Review Reflex No
[2022-02-25 07:49] LABS: Slide Review Acceptable Review (Acceptable)
[2022-02-25] MEDS: FUROSEMIDE 20 MG TABLET PO (08:21)
[2022-02-25] MEDS: LOSARTAN POTASSIUM 50 MG TABLET PO (08:22)
[2022-02-25] MEDS: AMLODIPINE 10 MG TABLET PO (08:22)
[2022-02-25] MEDS: METOPROLOL SUCCINATE (XL) 50 MG TAB PO (08:23)
[2022-02-25] MEDS: ASPIRIN 81 MG TABLET EC PO (08:23)
[2022-02-25] MEDS: APIXABAN 5 MG TABLET PO (08:23)
[2022-02-25] MEDS: allopurinoL 300 MG TABLET PO (08:24)
[2022-02-25] MEDS: METFORMIN ER 500 MG 1000 MG PO (08:24)
--- NOTE | 2022-02-25 09:19 | P.DS_ITS ---
DS: Providers Provider Date Seen: 02/25/22 Date of admission: 02/23/22 15:59 Primary care physician: Charles Thomas MD Admitting Clinician: Shelly Carrasquillo MD Consults: 02/23/22 18:04 Consult to Nutrition [CONS] Routine Comment: Reason for consult:: Diabetic Teaching Consult to Cap Blocker [CONS] Routine Comment: Reason for Consult:: Social Service Consult Attending Physician on discharge: Shelly Carrasquillo MD DS: Diagnosis Discharge Diagnosis (1) Atrial fibrillation with controlled ventricular rate: Status: Acute Problem details: CHADS-VASC of 3. Eliquis initiated 02/23. TTE 02/24 Final Impressions: 1. Technically limited exam. 2. Echo contrast was administrered to enhance visualization of all left ventricular segments. 3. Normal left ventricular size, severely increased wall thickness, normal global systolic function, calculated EF of 73 %. 4. Right ventricular cavity size is normal, global systolic RV function is normal. 5. Mildly enlarged left atrium. 6. The aortic valve is trileaflet and sclerotic, no stenosis and trivial regurgitation. 7. The mitral valve is normal, mild mitral regurgitation. (2) Diabetes mellitus, new onset: Status: Acute Problem details: A1C 13.3 on 02/23 (3) Urine leukocytes: Status: Acute Problem details: Negative urine culture. (4) Obstructive sleep apnea treated with continuous positive airway pressure (CPAP): Status: Acute (5) Gastroesophageal reflux disease: Status: Acute (6) Essential hypertension: Status: Acute DS: Summary Hospital Course Hospital Course: 71-year-old male admitted for hyperglycemia and new onset, rate controlled, atrial fibrillation. Patient's A1c resulted at 13.3. He was seen by certified diabetes educator and nutrition team; feels comfortable with diet changes and Metformin therapy upon discharge. He believes he can make lifestyle changes to improve his blood sugar, and is deferring insulin therapy until PCP lisa/nia Gao remained asymptomatic from his rate controlled atrial fibrillation. TTE results noted above; we transitioned from Atenolol BID to Metoprolol XL once daily. Apixaban initiated for anticoagulation. Patient was noted to have bacteruria on admission, treated with 2 days of Ceftriaxone. Urine culture negative at 48 hours, antibiotics discontinued upon discharge. Comorbidities as noted above remained stable. No other changes made to home medications. Status at Discharge Overall status at discharge: patient is progressing back to baseline Time Spent with Patient Time attestation: Total time spent providing and/or coordinating discharge services: Time spent: Greater than 30 minutes Exam Narrative: Exam Narrative: GEN: Alert and oriented, answering questions appropriately HEENT: Normal external ears, EOMIs bilaterally, no scleral icterus CV: Atrial fibrillation with rate in the 60s, no concerning murmurs, rubs, or gallops R: LCTA bilaterally without concerning wheezing, rales, or rhonchi Ext: wwp, no concerning edema Skin: No concerning skin lesions or rashes on exposed skin Neuro: Nonfocal Psych: Appropriate Const: Vital Signs, click to edit/add: Vital Signs - 24 hr 02/24/22 13:24 02/24/22 15:00 02/24/22 16:00 Temperature 98.7 F 98.4 F Pulse Rate Pulse Rate [Apical ] 69 79 79 Respiratory Rate 16 16 16 Blood Pressure [Le ft Arm] 136/89 102/72 Pulse Oximetry 95 96 Oxygen Delivery Me thod Room Air Room Air 02/24/22 19:00 02/24/22 22:31 02/24/22 22:31 Temperature 98.2 F Pulse Rate 74 Pulse Rate [Apical ] 81 74 Respiratory Rate 16 16 Blood Pressure [Le ft Arm] 146/87 H Pulse Oximetry 96 Oxygen Delivery Me thod Room Air 02/24/22 23:00 02/25/22 02:40 02/25/22 07:15 Temperature 98.4 F 98.2 F Pulse Rate 68 Pulse Rate [Apical ] 74 76 Respiratory Rate 16 16 Blood Pressure [Le ft Arm] 142/92 H 142/94 H Pulse Oximetry 95 96 Oxygen Delivery Me thod Room Air CPAP 02/25/22 07:30 02/25/22 07:30 Temperature 97.9 F Pulse Rate Pulse Rate [Apical ] 76 76 Respiratory Rate 18 18 Blood Pressure [Le ft Arm] 136/88 Pulse Oximetry 94 Oxygen Delivery Me thod CPAP DS: Data Data Completed and Pending Labs on day of discharge: Labs from last 24 hours 02/25/22 02/25/22 06:16 06:16 WBC 6.19 RBC 4.62 Hgb 14.6 Hct 42.1 MCV 91 MCH 32 MCHC 35 RDW Coeff of Ciro 11.7 Plt Count 201 Neut % (Auto) 64.9 Lymph % (Auto) 24.6 [place] % (Auto) 8.6 Eos % (Auto) 1.1 Baso % (Auto) 0.5 Neut # (Auto) 4.02 Lymph # (Auto) 1.52 [place] # (Auto) 0.50 Eos # (Auto) 0.07 Baso # (Auto) 0.03 Abs Immat Gran (auto) 0.02 Diff Slide Review Acceptable Review Sodium 135 Potassium 3.8 Chloride 99 Carbon Dioxide 26 BUN 25 Creatinine 0.8 Estimated Creat Clear 69.96 Estimated GFR 95 Glucose 236 H Calcium 8.6 Discharge Plan Discharge Disposition: Home, Self-Care Date of Admission: 02/23/22 15:59 Attending Provider on Discharge: Sonam Gaines Primary Care Provider: Charles Thomas Condition: Improved Anticipated Discharge Date/Time: 02/25/22 09:17 Discharge Medications: New Eliquis 5 mg Tablet 5 mg PO BID 30 Days Qty: 60 0RF metoprolol succinate 50 mg Tablet Extended Release 24 Hr 50 mg PO DAILY 30 Days Qty: 30 0RF metformin 500 mg Tablet Extended Release 24 Hr 1,000 mg PO BIDWM 30 Days Qty: 60 0RF Continued losartan 50 mg tablet 50 mg PO BID doxazosin 8 mg tablet 8 mg PO HS allopurinol 300 mg tablet 300 mg PO DAILY furosemide 20 mg tablet 20 mg PO DAILY amlodipine 10 mg tablet 10 mg PO DAILY omeprazole 20 mg capsule,delayed release(DR/EC) 20 mg PO DAILY multivitamin with iron [Daily Multiple Vitamins/Iron] Tablet 1 tab PO DAILY flaxseed oil 1,000 mg capsule 1,000 mg PO DAILY ascorbic acid (vitamin C) 1,000 mg tablet 1 g PO DAILY fluorouracil 5 % cream 1 applic topical ONCE Qty: 40 0RF Discontinued atenolol 50 mg tablet 50 mg PO BID aspirin 81 mg tablet,delayed release (DR/EC) 81 mg PO DAILY GOLO RELEASE Rx Instructions: 1 TAB THREE TIMES A DAY WITH MEALS - SEE SITE FOR DETAILS [email or web address] Discharge Orders: Discharge Order (Routine); Ordered 02/25/22 Ordered By: Sonam Gaines Patient Education: Diabetes and Nutrition (GEN) Discharge Diet: Diabetic Follow Up Appointments: Charles Thomas MD [Primary Care Provider] - (already scheduled by patient for 03/04) Forms: Who@ Info Instructions
[2022-02-25 11:15] VITALS: BP 116/79; PULSE 80; RESP 18; TEMP 36.7; O2SAT 96
--- NOTE | 2022-02-25 12:48 | PC.NURSE ---
discharge Pt has been very pleasant. no pain. Pt. AOx4, following commands, Tele shows A-fib. he is up ab noni. bs was 130 this am and he got 2 units insulin. SL was d/c intact. and tele was d/c. went over discharge teaching. went over checking BS, went over discharge packet, went over 3 new medications, appointment, instructions and education. went over bleeding with blood thinners. checking Heart rate. pt went over and signed personal belonging sheet. all belongings packet up and paperwork. pt walked out with
== END 2022-02-25 11:45 | disposition home or self-care (01) ==
LOC: ED 12:45 → MEDSURG 15:59
PROVIDERS: Family Medicine; Admitting Provider Family Medicine; Emergency Provider Family Medicine; PCP Family Medicine; Visit Provider Family Medicine
DX: I48.91 Unspecified atrial fibrillation (principal); E11.65 Type 2 diabetes mellitus with hyperglycemia; G47.33 Obstructive sleep apnea (adult) (pediatric); K21.9 Gastro-esophageal reflux disease without esophagitis; I10 Essential (primary) hypertension; R82.998 Other abnormal findings in urine; M10.9 Gout, unspecified; Z79.01 Long term (current) use of anticoagulants; Z79.84 Long term (current) use of oral hypoglycemic drugs; H53.8 Other visual disturbances; R06.02 Shortness of breath; M62.81 Muscle weakness (generalized); Z68.37 Body mass index [BMI] 37.0-37.9, adult; E66.01 Morbid (severe) obesity due to excess calories; R35.89 Other polyuria; R63.1 Polydipsia; R60.9 Edema, unspecified; Z99.89 Dependence on other enabling machines and devices
CPT/HCPCS: 36415; 80048; 80053; 80061; 80076; 81001; 82150; 82947; 82977; 83036; 83605; 83880; 84443; 84484; 84550; 85025; 85610; 86140; 87086; 87635; 93005; 93306; 96361; 96365; 96366; 96372; 99284; 99285; G0378; A9270; G0379; J0696; J7030

== ENCOUNTER 2022-05-20 12:30 | Outpatient (RCR) | payer MEDICARE, OTHER, SELFPAY ==
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
== END 2022-05-20 17:40 | disposition home or self-care (01) ==
PROVIDERS: PCP Family Medicine; Visit Provider Orthopaedic Surgery
DX: M65.341 Trigger finger, right ring finger (principal); Z51.89 Encounter for other specified aftercare
CPT/HCPCS: 97035; 97140; 97165

== ENCOUNTER 2023-07-04 13:53 | Emergency (ER) | payer MEDICARE, OTHER, SELFPAY ==
[2023-07-04] VITALS (25 sets, daily range): BP systolic 153–192; BP diastolic 94–114; PULSE 65–88; RESP 16; TEMP 36.4; O2SAT 90–97; BMI 35.2
--- NOTE | 2023-07-04 14:12 | ED.NURSE ---
Reviewed patients symptoms and complaints with Dr. Reagan. He stated no need to call a code stroke. Will see the patient very soon.
--- NOTE | 2023-07-04 14:31 | CRLHL7_ITS ---
For Patients: As a result of the Century Cures Act, medical imaging exams and procedure reports are released immediately into your electronic medical record. You may view this report before your referring provider. If you have questions, please contact your health care provider. INDICATION: Aphasia. TECHNIQUE: MRI brain: Multiplanar multisequence noncontrast MR images acquired. MRA head: [id number] imaging acquired. COMPARISON: None. FINDINGS: MRI brain: Prominence of the ventricles and sulci compatible with mild diffuse cerebral volume loss. No mass effect or midline shift. Scattered FLAIR hyperintensities in the supratentorial white matter, typical for mild chronic microvascular ischemic changes. No diffusion restriction to suggest acute infarction. No intracranial hemorrhage or pathologic extra-axial fluid collection. Chronic lacunar infarction medial right cerebellar hemisphere. The major arterial flow voids of the skullbase are preserved. The globes are symmetric. Abdomen T2 hyperintense lesion inseparable from the left maxillary antral floor measuring up to 3.4 cm demonstrates extension into the left retromaxillary and left buccal regions. Postsurgical changes of endoscopic sinus surgery. Left maxillary mucoperiosteal wall thickening. Mild left ethmoid sinus mucosal thickening. The mastoid air cells are clear. MRA head: The internal carotid, middle cerebral, and anterior cerebral arteries are widely patent. The vertebral, basilar, and posterior cerebral arteries are patent. Moderate right posterior cerebral artery proximal P2 segment stenosis. Mild narrowing of the left posterior cerebral artery P2 segment. No intracranial aneurysm or high-flow vascular malformation. IMPRESSION: 1. No acute intracranial abnormality. 2. Mild chronic microvascular ischemic changes and diffuse cerebral volume loss. 3. Chronic lacunar infarction left cerebellar hemisphere. 4. Avidly T2 hyperintense lesion inseparable from the left maxillary antral floor demonstrates extension into the left retromaxillary and left buccal regions. Findings are incompletely characterized. CT sinus is recommended for further evaluation on a nonemergent basis. 5. MRA head demonstrates intracranial atherosclerotic disease including moderate right posterior cerebral artery proximal P2 segment stenosis. Dictated by Wood Matos MD @ 07/04/2023 4:55:32 PM (Electronically Signed)
[2023-07-04 14:44] LABS: Basophils Absolute Auto 0.03 K/uL (0.00-0.30); Basophils Percent Auto 0.4 % (0.0-3.0); Eosinophils Absolute Auto 0.01 K/uL (0.00-0.50); Eosinophils Percent Auto 0.1 % (0.0-7.0); Hematocrit 40.4 % (37.0-53.0); Hemoglobin* 14.1 gm/dL (13.5-17.5); Immature Granulocytes Abs Auto 0.06 K/uL (0.00-0.30); Immature Granulocytes Pct Auto 0.8 %; Mean Corpuscular HGB Conc 35 gm/dL (32-36); Mean Corpuscular Hemoglobin 31 pg (26-34); Mean Corpuscular Volume 89 fL (80-100); Monocytes Percent Auto 8.7 % (0.0-11.0); Neutrophils Absolute Auto 5.32 K/uL (1.7-7.0); Platelet Count* 238 K/uL (140-440); Red Blood Count 4.53 m/uL (4.30-5.90); White Blood Count* 7.49 K/uL (4.50-11.00)
--- NOTE | 2023-07-04 14:46 | ED.NURSE ---
Notified of prolonged hypertension. MD would like him to be elevated at this time.
[2023-07-04 14:48] LABS: Troponin, Point-of-Care* 0.01 ng/ml (0.01-0.04)
[2023-07-04 14:57] LABS: Slide Review Reflex No
[2023-07-04 15:00] LABS: Chloride* 105 mmol/L (96-114); Sodium* 141 mmol/L (135-149)
[2023-07-04 15:01] LABS: Potassium* 3.4 mmol/L (3.6-5.1)
[2023-07-04 15:03] LABS: Creatinine* 1.6 mg/dL (0.5-1.5); Est. Creatinine Clearance* 42.46; Estimated Glomerular Filt Rate 45 ml/min
[2023-07-04 15:04] LABS: Anion Gap 14 mEq/L (7-15); Blood Urea Nitrogen* 30 mg/dL (7-30); Calcium* 9.5 mg/dL (8.4-10.6); Carbon Dioxide* 22 mmol/L (20-32); Glucose* 121 mg/dL (60-115)
--- NOTE | 2023-07-04 15:07 | ED_ITS ---
HPI - General Adult General Chief complaint: Neuro Symptoms/Altered Deficit Stated complaint: Possible stroke earlier--trouble speaking Time Seen by Provider: 07/04/23 14:12 History of Present Illness HPI narrative: This 73-year-old male comes in reporting an episode of aphasia that occurred about an hour prior to arrival. He states that he had a time lasting less than 10 minutes where he knew what he wanted to say but could not make the words come out. He did not have any altered sensation otherwise and had no weakness or other neurologic deficit. He does not report a headache. He does have a history of atrial fibrillation and is currently taking Eliquis. Since then symptoms have completely resolved and he feels back to normal in every way. Related Data Home Medications Medication Instructions Recorded Confirmed allopurinol 300 mg tablet 300 mg PO DAILY 02/01/22 07/04/23 amlodipine 10 mg tablet 10 mg PO DAILY 02/01/22 07/04/23 ascorbic acid (vitamin C) 1,000 mg 1 g PO DAILY 02/01/22 07/04/23 tablet flaxseed oil 1,000 mg capsule 1,000 mg PO DAILY 02/01/22 07/04/23 furosemide 20 mg tablet 20 mg PO DAILY 02/01/22 07/04/23 losartan 50 mg tablet 50 mg PO BID 02/01/22 07/04/23 multivitamin with iron (Daily 1 tab PO DAILY 02/01/22 07/04/23 Multiple Vitamins with Iron tablet) doxazosin 8 mg tablet 4 mg PO HS 03/23/22 07/04/23 famotidine 20 mg tablet (Pepcid) 20 mg PO DAILY 07/04/23 07/04/23 sildenafil 50 mg tablet (Viagra) 50 mg PO DAILY PRN 07/04/23 07/04/23 Previous Rx's Medication Instructions Recorded fluorouracil 5 % topical cream 1 applic topical ONCE #40 grams 02/01/22 apixaban 5 mg tablet (Eliquis) 5 mg PO BID 30 days #60 tabs 02/24/22 metformin 500 mg tablet,extended 1,000 mg (2 x 500 mg) PO BIDWM 30 02/24/22 release 24 hr days #60 tabs metoprolol succinate 50 mg 50 mg PO DAILY 30 days #30 tabs 02/24/22 tablet,extended release 24 hr Allergies Allergy/AdvReac Type Severity Reaction Status Date / Time hydrochlorothiazide Allergy Intermediate Unknown Verified 07/04/23 13:59 Angiotensin-converting Allergy Intermediate Unknown Uncoded 03/23/22 09:44 enzyme inhibitor Sulfa drugs Allergy Mild Unknown Uncoded 03/23/22 09:44 Review of Systems Status of ROS: Reports: 10 or more systems reviewed and unremarkable except as noted in History and below Narrative: Constitutional: No fevers, no weight gain or loss. Eyes: No discharge. No vision changes. HENT: No congestion, no sore throat, no ear pain. Cardiovascular: No chest pain, no palpitations. Respiratory: No shortness of breath, no wheezes, no cough. Gastrointestinal: No abdominal pain, no vomiting, no diarrhea. Genitourinary: No dysuria, no hematuria. Musculoskeletal: Normal range of motion. Skin: No rashes, no pruritis. Neurological: No dizziness, weakness, speech change. Transient speech change as described above. Endo/Heme/Allergies: No bruising or bleeding. No polydipsia. Pysch: no suicidality, no anxiety, no insomnia. All other systems reviewed and are negative. [facility] Medical History (Updated 07/04/23 @ 17:32 by Kevin Leahy MD) Alopecia ?L65.9 - Nonscarring hair loss, unspecified (ICD-10) Diabetes mellitus type 2 in obese ?E11.69 - Type 2 diabetes mellitus with other specified complication (ICD-10) ?E66.9 - Obesity, unspecified (ICD-10) Atrial fibrillation with controlled ventricular rate ?I48.91 - Unspecified atrial fibrillation (ICD-10) H/O renal calculi ?Z87.442 - Personal history of urinary calculi (ICD-10) Obstructive sleep apnea treated with continuous positive airway pressure (CPAP) ?G47.33 - Obstructive sleep apnea (adult) (pediatric) (ICD-10) ?Z99.89 - Dependence on other enabling machines and devices (ICD-10) Morbid obesity ?E66.01 - Morbid (severe) obesity due to excess calories (ICD-10) Gout (2015) ?M10.9 - Gout, unspecified (ICD-10) Gastroesophageal reflux disease ?K21.9 - Gastro-esophageal reflux disease without esophagitis (ICD-10) Essential hypertension ?I10 - Essential (primary) hypertension (ICD-10) Surgical History History of nasal septoplasty ?Z98.890 - Other specified postprocedural states (ICD-10) History of tonsillectomy and adenoidectomy ?Z90.89 - Acquired absence of other organs (ICD-10) Status post trigger finger release (05/27/08) ?Z98.890 - Other specified postprocedural states (ICD-10) History of tonsillectomy ?Z90.89 - Acquired absence of other organs (ICD-10) History of sinus surgery (2007) ?Z98.890 - Other specified postprocedural states (ICD-10) Family History Mother Diabetes Father High blood pressure Social History Narrative: 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 Graduated from [employer]. to [employer] for greater than 50 years. Adult children. [place] [address] [place] [facility]. Smoking Status: Never smoker Do you use any of these nicotine containing products: None Second hand tobacco smoke exposure: No How often do you have a drink containing alcohol: monthly or less How many standard drinks containing alcohol do you have on a typical day: 1 or 2 How often do you have six or more drinks on one occasion: Never AUDIT-C Alcohol total score: 1 Non-prescribed substance use: denies use Caffeine: No service: No Exam Narrative: Exam Narrative: Constitutional: Well-developed, well-nourished, no acute distress. HEENT: Normocephalic, atraumatic. Neck: Normal range of motion. Nontender. Supple. Heart: Regular. No murmurs. Normal rate. Intact distal pulses. Lungs: Clear to auscultation. No chest discomfort. No wheezes, rhonchi, or rales. Abdomen: Normal bowel sounds. Nontender. No rebound tenderness. Genitalia: Deferred. Back: No midline tenderness. Normal range of motion. Extremities: Normal range of motion. No injury. Skin: Intact. No rash. Warm. No erythema or pallor. Neurologic: No altered sensation. No weakness. Alert and oriented. Tongue is midline. No facial asymmetry. Speech is normal. [id number] is normal. No pronator drift. 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 He is able to raise each leg from the bed to my hand. Psychiatric: No suicidality. No anxiety or depression. No insomnia. Nursing notes and vitals signs are reviewed. Const: Vital Signs, click to edit/add: Vital Signs - 24 hr 07/04/23 14:01 07/04/23 14:05 07/04/23 14:07 Temperature 97.6 F Pulse Rate 79 82 Pulse Rate [Pulse Oximeter] 82 Respiratory Rate 16 16 Blood Pressure 182/98 H Blood Pressure [Le ft Upper Arm] 182/98 H Pulse Oximetry 95 94 95 [facility] 07/04/23 14:15 07/04/23 14:18 07/04/23 14:19 Temperature Pulse Rate 77 81 77 Pulse Rate [Pulse Oximeter] Respiratory Rate 16 Blood Pressure 191/111 H Blood Pressure [Le ft Upper Arm] Pulse Oximetry 94 93 95 [facility] 07/04/23 14:30 07/04/23 14:32 07/04/23 14:45 Temperature Pulse Rate 79 73 71 Pulse Rate [Pulse Oximeter] Respiratory Rate Blood Pressure 192/110 H Blood Pressure [Le ft Upper Arm] Pulse Oximetry 96 92 92 Oxygen Delivery Md thod 07/04/23 14:47 07/04/23 15:00 07/04/23 15:02 Temperature Pulse Rate 72 70 70 Pulse Rate [Pulse Oximeter] Respiratory Rate Blood Pressure 173/102 H 173/114 H Blood Pressure [Le ft Upper Arm] Pulse Oximetry 91 97 92 Oxygen Delivery Md thod 07/04/23 15:23 07/04/23 15:30 07/04/23 15:32 Temperature Pulse Rate 79 69 65 Pulse Rate [Pulse Oximeter] Respiratory Rate Blood Pressure 176/99 H Blood Pressure [Le ft Upper Arm] Pulse Oximetry 95 94 90 Oxygen Delivery Md thod 07/04/23 15:33 07/04/23 15:45 07/04/23 15:48 Temperature Pulse Rate 68 66 67 Pulse Rate [Pulse Oximeter] Respiratory Rate Blood Pressure 172/94 H Blood Pressure [Le ft Upper Arm] Pulse Oximetry 95 94 95 [facility] 07/04/23 16:37 07/04/23 16:39 07/04/23 16:40 Temperature Pulse Rate 86 87 81 Pulse Rate [Pulse Oximeter] Respiratory Rate Blood Pressure 153/109 H Blood Pressure [Le ft Upper Arm] Pulse Oximetry 91 91 90 Oxygen Delivery Me thod 07/04/23 16:45 07/04/23 17:00 07/04/23 17:15 Temperature Pulse Rate 88 65 68 Pulse Rate [Pulse Oximeter] Respiratory Rate Blood Pressure Blood Pressure [Le ft Upper Arm] Pulse Oximetry 90 94 94 Oxygen Delivery Me thod 07/04/23 17:18 Temperature Pulse Rate 70 Pulse Rate [Pulse Oximeter] Respiratory Rate Blood Pressure 186/109 H Blood Pressure [Le ft Upper Arm] Pulse Oximetry 95 Oxygen Delivery Me thod Course Vital Signs Vital signs: Initial Vital Signs Temperature 97.6 F 07/04/23 14:01 Temperature Source Temporal Artery Scan 07/04/23 14:01 Pulse Rate 82 07/04/23 14:01 Pulse Rhythm Regular 07/04/23 14:01 Pulse Strength 3+ Normal 07/04/23 14:01 Respiratory Rate 16 07/04/23 14:01 Blood Pressure 182/98 H 07/04/23 14:01 Blood Pressure Mean 126 H 07/04/23 14:01 Blood Pressure Position Supine 07/04/23 14:01 Pulse Oximetry 95 07/04/23 14:01 Oxygen Delivery Method Room Air 07/04/23 14:01 Vital Signs Temperature 97.6 F 07/04/23 14:01 Pulse Rate 82 07/04/23 14:01 Respiratory Rate 16 07/04/23 14:01 Blood Pressure 182/98 H 07/04/23 14:01 Pulse Oximetry 95 07/04/23 14:01 Oxygen Delivery Method Room Air 07/04/23 14:01 Temperature 97.6 F 07/04/23 14:01 Pulse Rate 70 07/04/23 17:18 Respiratory Rate 16 07/04/23 14:18 Blood Pressure 186/109 H 07/04/23 17:18 Pulse Oximetry 95 07/04/23 17:18 Oxygen Delivery Method Room Air 07/04/23 14:01 Medical Decision Making MDM Narrative Medical decision making narrative: This patient comes in with a report of a brief episode of inability to speak. This lasted between 5 and 10 minutes. He did not have any other symptoms. There was no other neurologic deficit or altered sensation or weakness. Since then he has been doing fine and feeling normal. He does not report a headache. The patient does have paroxysmal atrial fibrillation and is currently taking Eliquis. His neurologic exam is completely normal. His speech is currently normal. An IV was established and the patient did have MR IN MRA of the head which returns with no acute findings. It is uncertain exactly what triggered t his episode for him but he was sufficiently reassured with the lab and imaging results today. The patient is okay to be discharged home. He is encouraged to continue taking Eliquis. He should return if symptoms are recurrent. Lab Data Labs: Lab Results 07/04/23 07/04/23 Range/Units 14:17 14:47 WBC 7.49 (4.50-11.00) K/uL RBC 4.53 (4.30-5.90) m/uL Hgb 14.1 (13.5-17.5) gm/dL Hct 40.4 (37.0-53.0) % MCV 89 (80-100) fL MCH 31 (26-34) pg MCHC 35 (32-36) gm/dL RDW Coeff of Ciro 12.0 (11.5-15.5) % Plt Count 238 (140-440) K/uL Neut % (Auto) 71.0 (42.0-72.0) % Lymph % (Auto) 19.0 L (20-44) % [place] % (Auto) 8.7 (0.0-11.0) % Eos % (Auto) 0.1 (0.0-7.0) % Baso % (Auto) 0.4 (0.0-3.0) % Neut # (Auto) 5.32 (1.7-7.0) K/uL Lymph # (Auto) 1.40 (0.90-2.90) K/uL [place] # (Auto) 0.70 (0.00-0.90) K/UL Eos # (Auto) 0.01 (0.00-0.50) K/uL Baso # (Auto) 0.03 (0.00-0.30) K/uL Abs Immat Gran (auto) 0.06 (0.00-0.30) K/uL Imm/Tot Granulo (auto) 0.8 % Sodium 141 (135-149) mmol/L Potassium 3.4 L (3.6-5.1) mmol/L Chloride 105 (96-114) mmol/L Carbon Dioxide 22 (20-32) mmol/L Anion Gap 14 (7-15) mEq/L BUN 30 (7-30) mg/dL Creatinine 1.6 H (0.5-1.5) mg/dL Estimated Creat Clear 42.46 Estimated GFR 45 ml/min Glucose 121 H (60-115) mg/dL Calcium 9.5 (8.4-10.6) mg/dL POC Troponin I 0.01 (0.01-0.04) ng/ml Imaging Data MRA Head: Radiologist's impression: 1. No acute intracranial abnormality. 2. Mild chronic microvascular ischemic changes and diffuse cerebral volume loss. 3. Chronic lacunar infarction left cerebellar hemisphere. 4. Avidly T2 hyperintense lesion inseparable from the left maxillary antral floor demonstrates extension into the left retromaxillary and left buccal regions. Findings are incompletely characterized. CT sinus is recommended for further evaluation on a nonemergent basis. 5. MRA head demonstrates intracranial atherosclerotic disease including moderate right posterior cerebral artery proximal P2 segment stenosis. MRI - head: Radiologist's impression: 1. No acute intracranial abnormality. 2. Mild chronic microvascular ischemic changes and diffuse cerebral volume loss. 3. Chronic lacunar infarction left cerebellar hemisphere. 4. Avidly T2 hyperintense lesion inseparable from the left maxillary antral floor demonstrates extension into the left retromaxillary and left buccal regions. Findings are incompletely characterized. CT sinus is recommended for further evaluation on a nonemergent basis. 5. MRA head demonstrates intracranial atherosclerotic disease including moderate right posterior cerebral artery proximal P2 segment stenosis. ECG Data Attestation: I personally reviewed and interpreted this ECG as follows: Interpretation: Normal sinus rhythm. Rate is 80 beats per minute. There are no ST or T-wave abnormalities. Discharge Plan Discharge Clinical Impression: Aphasia Patient Disposition: Home, Self-Care Condition: Improved Additional Instructions: Continue current plans. Take current medications as prescribed. Follow up with MD or return if symptoms are recurrent. Prescriptions: No Action losartan 50 mg tablet 50 mg PO BID allopurinol 300 mg tablet 300 mg PO DAILY furosemide 20 mg tablet 20 mg PO DAILY amlodipine 10 mg tablet 10 mg PO DAILY multivitamin with iron [Daily Multiple Vitamins/Iron] Tablet 1 tab PO DAILY flaxseed oil 1,000 mg capsule 1,000 mg PO DAILY ascorbic acid (vitamin C) 1,000 mg tablet 1 g PO DAILY fluorouracil 5 % cream 1 applic topical ONCE Qty: 40 0RF doxazosin 8 mg tablet 4 mg PO HS Eliquis 5 mg Tablet 5 mg PO BID 30 Days Qty: 60 0RF metoprolol succinate 50 mg Tablet Extended Release 24 Hr 50 mg PO DAILY 30 Days Qty: 30 0RF metformin 500 mg Tablet Extended Release 24 Hr 1,000 mg PO BIDWM 30 Days Qty: 60 0RF famotidine [Pepcid] 20 mg tablet 20 mg PO DAILY sildenafil [Viagra] 50 mg tablet 50 mg PO DAILY PRN Rx Instructions: administer 30 minutes to 4 hours before activity Follow Up/Referrals: Charles Thomas MD [Primary Care Provider] - Stand Alone Forms: [facility] Info Instructions
--- NOTE | 2023-07-04 15:49 | ED.NURSE ---
pt to MRI 1550
--- NOTE | 2023-07-04 16:08 | ED.NURSE ---
Pt unavailable, at imaging.
--- NOTE | 2023-07-04 16:44 | ED.NURSE ---
pt back from MRI
== END 2023-07-04 17:40 | disposition home or self-care (01) ==
PROVIDERS: Emergency Provider Emergency Medicine Emergency Medical Services; PCP Family Medicine
DX: R47.01 Aphasia (principal); R44.8 Other symptoms and signs involving general sensations and perceptions
CPT/HCPCS: 36415; 70544; 70551; 80048; 84484; 85025; 93005; 99284

== ENCOUNTER 2023-10-28 13:11 | Emergency (ER) | payer MEDICARE, OTHER, SELFPAY ==
[2023-10-28 13:22] VITALS: BP 172/93; PULSE 63; RESP 20; TEMP 36.5; O2SAT 95; BMI 35.9
--- NOTE | 2023-10-28 13:49 | XR_ITS ---
Patient: PAUL MARAVILLA Facility:?[facility] Patient ID:?[id number] Site Patient ID:?[id number] Site :?[id number] Study:?XRay-Extremity Left Ankle-10/28/2023 2:06:07 PM Ordering Physician:Pranay Cooper Final Report: INDICATION: Pain TECHNIQUE: Three views left ankle FINDINGS/IMPRESSION: Normal alignment. No acute fracture or acute osseous abnormalities are visualized. Minimal soft tissue swelling. Ankle mortise is preserved. Calcaneal spurs. Dictated by Fiorella Lopez MD @ 10/28/2023 2:34:35 PM Signed by:?Fiorella Lopez MD @10/28/2023 2:34:35 PM (Electronic Signature)
--- NOTE | 2023-10-28 13:57 | ED_ITS ---
HPI - General Adult General Chief complaint: Extremity Pain/Injury, Lower Stated complaint: L leg-growth on outer ankle, painful Time Seen by Provider: 10/28/23 13:12 History of Present Illness HPI narrative: Patient is a 73 year white male who presents with left lateral ankle pain for t he last 3 4 days. 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 He describes really no pain with flexion extension of his ankle but with internal external rotation he has some pain over the lateral malleolus inferiorly. No warmth erythema, no significant trauma noted. He has had a history of gout, but he is on allopurinol, the patient is also on Eliquis as he has paroxysmal atrial fibrillation by his report. He also is a non- insulin diabetic. And is on metformin and Jardiance. He denies calf pain leg swelling ankle swelling trauma or injury is reported he has been using his ankle lot more than normal. No fever, chills, redness to the area. Related Data Home Medications Medication Instructions Recorded Confirmed allopurinol 300 mg tablet 300 mg PO DAILY 02/01/22 10/28/23 amlodipine 10 mg tablet 10 mg PO DAILY 02/01/22 10/28/23 ascorbic acid (vitamin C) 1,000 mg 1 g PO DAILY 02/01/22 10/28/23 tablet flaxseed oil 1,000 mg capsule 1,000 mg PO DAILY 02/01/22 10/28/23 furosemide 20 mg tablet 20 mg PO DAILY 02/01/22 10/28/23 losartan 50 mg tablet 100 mg PO DAILY 02/01/22 10/28/23 multivitamin with iron (Daily 1 tab PO DAILY 02/01/22 10/28/23 Multiple Vitamins with Iron tablet) doxazosin 8 mg tablet 8 mg PO HS 03/23/22 10/28/23 famotidine 20 mg tablet (Pepcid) 20 mg PO Q12H 07/04/23 10/28/23 carvedilol 25 mg tablet 25 mg PO BID 10/28/23 10/28/23 empagliflozin 25 mg tablet 25 mg PO DAILY 10/28/23 10/28/23 (Jardiance) metformin 500 mg tablet,extended 1,000 mg PO .DAILY 10/28/23 10/28/23 release 24 hr rosuvastatin 10 mg tablet 10 mg PO QPM 10/28/23 10/28/23 spironolactone 25 mg tablet 25 mg PO QAM 10/28/23 10/28/23 Previous Rx's Medication Instructions Recorded fluorouracil 5 % topical cream 1 applic topical ONCE #40 grams 02/01/22 apixaban 5 mg tablet (Eliquis) 5 mg PO BID 30 days #60 tabs 02/24/22 Allergies Allergy/AdvReac Type Severity Reaction Status Date / Time hydrochlorothiazide Allergy Intermediate Unknown Verified 10/28/23 13:27 FAINA Inhibitors Allergy Unknown Verified 10/28/23 13:27 Sulfa (Sulfonamide Allergy Unknown Verified 10/28/23 13:27 Antibiotics) Review of Systems Status of ROS: Reports: 6 or more systems reviewed and unremarkable except as noted in History and below [facility] Medical History Alopecia ?L65.9 - Nonscarring hair loss, unspecified (ICD-10) Diabetes mellitus type 2 in obese ?E11.69 - Type 2 diabetes mellitus with other specified complication (ICD-10) ?E66.9 - Obesity, unspecified (ICD-10) Atrial fibrillation with controlled ventricular rate ?I48.91 - Unspecified atrial fibrillation (ICD-10) H/O renal calculi ?Z87.442 - Personal history of urinary calculi (ICD-10) Obstructive sleep apnea treated with continuous positive airway pressure (CPAP) ?G47.33 - Obstructive sleep apnea (adult) (pediatric) (ICD-10) ?Z99.89 - Dependence on other enabling machines and devices (ICD-10) Morbid obesity ?E66.01 - Morbid (severe) obesity due to excess calories (ICD-10) Gout (2015) ?M10.9 - Gout, unspecified (ICD-10) Gastroesophageal reflux disease ?K21.9 - Gastro-esophageal reflux disease without esophagitis (ICD-10) Essential hypertension ?I10 - Essential (primary) hypertension (ICD-10) Surgical History History of nasal septoplasty ?Z98.890 - Other specified postprocedural states (ICD-10) History of tonsillectomy and adenoidectomy ?Z90.89 - Acquired absence of other organs (ICD-10) Status post trigger finger release (05/27/08) ?Z98.890 - Other specified postprocedural states (ICD-10) History of tonsillectomy ?Z90.89 - Acquired absence of other organs (ICD-10) History of sinus surgery (2007) ?Z98.890 - Other specified postprocedural states (ICD-10) Family History Mother Diabetes Father High blood pressure Other Morbid obesity Social History Narrative: Retired [place] [employer]. Graduated from [employer]. to [employer] for greater than 50 years. Adult children. [place] [address] [place] [facility]. Smoking Status: Never smoker Do you use any of these nicotine containing products: None Second hand tobacco smoke exposure: No How often do you have a drink containing alcohol: monthly or less How many standard drinks containing alcohol do you have on a typical day: 1 or 2 How often do you have six or more drinks on one occasion: Never AUDIT-C Alcohol total score: 1 Non-prescribed substance use: denies use Caffeine: No service: No Exam Narrative: Exam Narrative: Objective: The patient is alert, oriented no distress Vital signs show blood pressure slightly elevated he is afebrile Left lower extremity shows no swelling of the calf negative Homans sign no calf swelling or compression tenderness no palpable venous cords He has got no swelling of the ankle He has got pretty exquisite tenderness with internal external extremity with eversion a inversion of his ankle over the lateral malleolus inferiorly along the peroneus tendon. This also point tenderness to palpation in that area. There is no obvious clotting or swelling as mention. Distal CMS is normal left lower extremity. Const: Vital Signs, click to edit/add: Vital Signs - 24 hr 10/28/23 13:22 Temperature 97.7 F Pulse Rate [Pulse Oximeter] 63 Respiratory Rate 20 Blood Pressure [Ri ght Upper Arm] 172/93 H Pulse Oximetry 95 Oxygen Delivery Me thod Room Air Course Vital Signs Vital signs: Initial Vital Signs Temperature 97.7 F 10/28/23 13:22 Temperature Source Temporal Artery Scan 10/28/23 13:22 Pulse Rate 63 10/28/23 13:22 Respiratory Rate 20 10/28/23 13:22 Blood Pressure 172/93 H 10/28/23 13:22 Blood Pressure Mean 119 H 10/28/23 13:22 Blood Pressure Position Sitting 10/28/23 13:22 Pulse Oximetry 95 10/28/23 13:22 Oxygen Delivery Method Room Air 10/28/23 13:22 Vital Signs Temperature 97.7 F 10/28/23 13:22 Pulse Rate 63 10/28/23 13:22 Respiratory Rate 20 10/28/23 13:22 Blood Pressure 172/93 H 10/28/23 13:22 Pulse Oximetry 95 10/28/23 13:22 Oxygen Delivery Method Room Air 10/28/23 13:22 Temperature 97.7 F 10/28/23 13:22 Pulse Rate 63 10/28/23 13:22 Respiratory Rate 20 10/28/23 13:22 Blood Pressure 172/93 H 10/28/23 13:22 Pulse Oximetry 95 10/28/23 13:22 Oxygen Delivery Method Room Air 10/28/23 13:22 Medical Decision Making MDM Narrative Medical decision making narrative: 73-year-old male werner with increased activity recently with evidence of tendinitis in his ankle. He does not have any swelling of his ankle calf no tenderness is calf her leg. I do not think this he sustained a DVT or other clot issue, I do think he has some tendinitis present. At this point I think taking an x-ray be appropriate as well as have him start some anti-inflammatory such as Advil for few days, he can take some Tylenol to, and recommend icing, he also should have a ankle splint. He should follow-up with the primary care in the next 3-4 days to make sure this is improving, and return to the ED sooner problems concerns or worsening. Will review his x-ray if this is negative will out him go home with the splint and ibuprofen perhaps 400 mg twice a day for the next couple of days and then follow-up appointment. If there is changes or concerns or should he should return to the ED. Discharge Plan Discharge Clinical Impression: Ankle pain, left Patient Disposition: Home, Self-Care Condition: Stable Additional Instructions: Activity as tolerated, avoid walking on uneven ground, where your ankle splint during the day. Recommend icing 5-10 minutes 3 to 5 times a day to your lateral ankle. You can try some ibuprofen perhaps 2 tablets twice a day over the next 2-3 days. Would not use that medication longer than that. May also use Tylenol as needed. I recommend you follow-up with our orthopedic department we will make an appointment for follow-up (Monday 10:40). If there is any changes or concerns return to the emergency department sooner. Activity Level: Light activity Discharge Diet: Diabetic Prescriptions: No Action losartan 50 mg tablet 100 mg PO DAILY allopurinol 300 mg tablet 300 mg PO DAILY furosemide 20 mg tablet 20 mg PO DAILY amlodipine 10 mg tablet 10 mg PO DAILY multivitamin with iron [Daily Multiple Vitamins/Iron] Tablet 1 tab PO DAILY flaxseed oil 1,000 mg capsule 1,000 mg PO DAILY ascorbic acid (vitamin C) 1,000 mg tablet 1 g PO DAILY fluorouracil 5 % cream 1 applic topical ONCE Qty: 40 0RF doxazosin 8 mg tablet 8 mg PO HS Eliquis 5 mg Tablet 5 mg PO BID 30 Days Qty: 60 0RF famotidine [Pepcid] 20 mg tablet 20 mg PO Q12H carvedilol 25 mg tablet 25 mg PO BID spironolactone 25 mg tablet 25 mg PO QAM metformin 500 mg Tablet Extended Release 24 Hr 1,000 mg PO .DAILY Rx Instructions: with meal rosuvastatin 10 mg tablet 10 mg PO QPM Jardiance 25 mg tablet 25 mg PO DAILY Follow Up/Referrals: Charles Thomas MD [Primary Care Provider] - Stand Alone Forms: [facility] Info Instructions
--- OUTSIDE RECORDS SUMMARY | 2023-10-28 14:25 | XMS_ITS | Continuity of Care Document ---
Author Name Unknown Organization [facility] Address [address] [address] [place] [address] Care Team Providers Care Residential Sales Manager Name Role Phone [place], [place] Unavailable Unav ailable Procedures Procedure Date Colono Advance Directives Directive Yes / No Effective Date File Name No Information Encounters Encounter Description Practice Location Reason(s) For Visit Diagnoses Date Provider Providers Copied on Encounter [facility], [address] [address], [place], [place], [id number], [place] [facility] No Information [facility]. [address] [address], [place], [place], [id number], . tel:[phone] Family History Family Member Type Diagnosis Age At Onset No Information Payers Payer name Insurance type Covered libertarian ID Authoriza tion(s) No Information Social History Type Description Quantity Date Captured Comments Sex Male Smoking Status No Information Chief Complaint And Reason For Visit No Information Reason For Referral Reason For Referral No Information History Of Present Illness Encounter Date Complaint History Of Prese nt Illness No Information Functional Status Date Functional Assessmen t No Information Instructions Date Instruction Additional Infor mation No Information Assessments Type Assessment Date No Information Patient Care Teams Name Effective Dates (start - stop) Status Members No Information
--- OUTSIDE RECORDS SUMMARY | 2023-10-28 14:25 | XMS_ITS | Referral Summary ---
Author Name Unknown Organization [facility] Address [address] [place] [id number] Care Team Providers Care Information Lead Name Role Phone Unavailable Primary Care Provider Unavailabl e Source Comments Patient records contain information from all sites at [facility]. For routine questions regarding patient records, call [phone] during business hours, M-F 8:00 AM - 5:00 PM Central Time. Record requests for emergency care only can be directed to [phone] at any time.[facility] Encounters Date Type Department Care Team Description 10/20/2023 7:15 AM CDT - 10/23/2023 11:59 PM CDT [facility] [place], [place] [address] [place] [address] Enrico Brooke M.D. Discharge Disposition: Home or Self Care 10/19/2023 11:59 AM CDT - 10/22/2023 11:59 PM CDT [facility] [place], [place] [address] [place] [address] Enrico Brooke M.D. Apnea Sleep Obstructive Discharge Disposition: Home or Self Care 10/20/2023 9:30 AM CDT Office Visit [facility] [place], [place] [address] [place] [address] Fabián Medina M.D. Body Mass Index 30.0 To 30.9 Adult; Obstructive Sleep Apnea Adult 09/14/2023 Clinical Communication [facility] [place], [place] [address] [place] [address] Enrico Brooke M.D. from Last 3 Months Allergies Active Allergy Reactions Criticality Noted Date Comments Jeremy Inhibitors Hives (Reselect Reaction) 09/11/2006 Angiotensin I,Human Other (see comments) High 2021 Enalaprilat Rash 09/29/2004 Hydrochlorothiazide Hives (Reselect Reaction),Rash,Other (see comments) High 09/29/2004 Sulfa (Sulfonamide Antibiotics) Hives (R eselect Reaction),Other (see comments) Low 09/11/2006 Medications Medication Sig Dispensed Refills Start Date End Date Status allopurinol (ZYLOPRIM) 300 mg tablet 07/09/2018 Active amLODIPine (NORVASC) 10 mg tablet Take 1 tablet by mouth every evening. 05/13/2013 Active ascorbic acid, vitamin C, (vitamin C) 1,000 mg tablet Take 1 tablet by mouth daily. 04/22/2013 Active atenolol (TENORMIN) 50 mg tablet 07/10/2018 Active doxazosin (CARDURA) 4 mg tablet Take 1 tablet by mouth every evening. 04/22/2013 Active flaxseed oil 1,000 mg capsule Take 1,000 mg by mouth. 02/12/2016 Active furosemide (LASIX) 20 mg tablet 07/10/2018 Active losartan (COZAAR) 50 mg tablet Take 1 tablet by mouth 2 (two) times a day. 04/22/2013 Active multivitamin tablet Take 1 tablet by mouth daily. 04/22/2013 Active omeprazole (PriLOSEC) [address] capsule Take 1 capsule by mouth as needed. 11/14/2014 Active tamsulosin (FLOMAX) 0.4 mg 24 hr capsule Take by mouth. 02/02/2018 Active aspirin (ADULT LOW DOSE ASPIRIN) [address] tablet Take 1 tablet by mouth daily. 04/22/[address] tablet Take by mouth. Active MULTIVITAMIN ORAL Take by mouth. Active Eliquis 5 mg tablet Take 5 mg by mouth. 03/28/2022 Active blood sugar diagnostic strips (FreeStyle Lite Strips) Use to test one time per day. 04/26/2022 Active famotidine (PEPCID) 20 mg tablet Take 20 mg by mouth. 09/12/2022 Active fluorouraciL (EFUDEX) 5 % cream 02/01/2022 Active glipiZIDE (GLUCOTROL XL) 2.5 mg 24 hr tablet 03/03/2022 Active metFORMIN XR (GLUCOPHAGE-XR) 500 mg 24 hr tablet Take 2 tablets by mouth 2 (two) times a day with meals. 12/14/2022 Active metoprolol succinate (TOPROL-XL) 50 mg 24 hr tablet 02/24/2022 Active allopurinoL (ZYLOPRIM) 300 mg tablet Take 300 mg by mouth. 09/12/2022 Active DME CPAPIndications: Obstructive Sleep Apnea Adult DME Order 1 each 10/20/2023 Active DME CPAPIndications: Obstructive Sleep Apnea Adult DME Order 1 Device 08/28/2020 4 Discontinued DME CPAPIndications: Obstructive Sleep Apnea Adult DME Order 1 each 12/15/2022 4 Discontinued(Reor yasmin) Active Problems Problem Noted Date Diagnosed Date Gastroesophageal Reflux Disease 12/13/2018 Morbid Obesity Body Mass Index 40.0-44.9 Adult 0 12/13/2018 Nephrolithiasis Calcium Oxalate 07/30/2013 Hypertension Essential Primary 09/28/2004 Hidradenitis Suppurativa 09/28/2004 Social History Tobacco Use Types Packs/Day Years Used Date Smoking Tobacco: Never Smokeless Tobacco: Never Tobacco Cessation:Counseling Given: Not Answered Comments:cured at 8 years old Alcohol Use Standard Drinks/Week Comments Yes 2 (1 standard drink = 0.6 oz pure alcohol) 1 can beer or less per week over last 6 months Social Connection and Isolat ion Panel [NHANES] Answer Date Recorded In a typical week, how many times do you talk on the phone with family, friends, or neighbors? Three times a week 01/03/2021 How often do you get togethe r with friends or relatives? Once a week 01/03/2021 How often do you attend chur ch or restoration services? 1 to 4 times per year 01/03/2021 Do you belong to any clubs o r organizations such as adventist groups, unions, fraternal or athletic groups, or school groups? Yes 01/03/2021 How often do you attend meet ings of the clubs or organizations you belong to? More than 4 times per year 01/03/2021 Are you , , di vorced, , never , or living with a partner? 01/03/2021 AUDIT-C Answer Date Recorded Q1: How often do you have a drink containing alc ohol? 2-4 times a month 01/03/2021 Q2: How many drinks containi ng alcohol do you have on a typical day when you are drinking? 1 or 2 01/03/2021 Q3: How often do you have si x or more drinks on one occasion? Never 01/03/2021 Overall Financial Resource Strain (CARDIA) Answe r Date Recorded How hard is it for you to pa y for the very basics like food, housing, medical care, and heating? Not hard at all 01/03/2021 [facility] - Occupational Stress Questionnaire Answer Date Recorded Do you feel stress - tense, restless, nervous, or anxious, or unable to sleep at night because your mind is troubled all the time - these days? Only a little 01/03/2021 Exercise Vital Sign Answer Date Recorde d On average, how many days pe r week do you engage in moderate to strenuous exercise (like a brisk walk)? 1 day 01/03/2021 On average, how many minutes do you engage in exercise at this level? 10 min 01/03/2021 Hunger Vital Sign Answer Date Recorded Within the past 12 months, y ou worried that your food would run out before you got the money to buy more. Never true 01/04/20 21 Within the past 12 months, t he food you bought just didn't last and you didn't have money to get more. Never true 01/03/2021 PRAPARE - Transportation Answer Date Re corded In the past 12 months, has l ack of transportation kept you from medical appointments or from getting medications? No 12/17 In the past 12 months, has l ack of transportation kept you from meetings, work, or from getting things needed for daily living? No 01/03/2021 Housing Stability Vital Sign Answer [place] e Recorded In the last 12 months, was t here a time when you were not able to pay the mortgage or rent on time? No 01/03/2021 In the last 12 months, how many places have you lived? 1 01/03/2021 In the last 12 months, was t here a time when you did not have a steady place to sleep or slept in a correction (including now)? No 01/03/2021 Nutrition Answer Date Recorded On average, how many serving s of fruits and vegetables do you eat per day (serving size is equal to 1 cup or approximately the size of a tennis ball)? 0-1 01/03/2021 Dental Answer Date Recorded Dental: Regular Dentist Yes 06/20/19 Employment Answer Date Recorded Employment status Employed and actively working without restrictions 01/03/2021 Education Answer Date Recorded What is the highest level of school you have completed or the highest degree you have received? Bachelor's degree (e.g., BA, AB, BS) 12/14/2018 Sex and Gender Information Value Date Recorded Sex Assigned at Male 08/21/2018 1:37 PM MASS SPECTROMETRY MANAGER Gender Identity Male 08/21/2018 1:37 PM MASS SPECTROMETRY MANAGER Sexual Orientation Straight 08/21/2018 1: 37 PM MASS SPECTROMETRY MANAGER Last Filed Vital Signs Vital Sign Reading Time Taken Comments Blood Pressure 147/75 12/15/2022 10:41 AM CDT No BP pills taken this AM Pulse 66 12/15/2022 10:41 AM CDT Temperature - - Respiratory Rate 16 12/11/2013 9:25 AM CDT Oxygen Saturation - - Inhaled Oxygen Concentration - - Weight 109 kg (239 lb 13.8 oz) 12/15/2022 10:41 AM CDT Height 177.3 cm (5' 9.8) 12/15/2022 10 :41 AM CDT Body Mass Index 34.61 12/15/2022 10:41 AM CDT Plan of Treatment Upcoming Encounters Date Type Department Care Team (Latest Contact Info) Description 11/29/2023 1:40 PM CDT Appointment Division of flange turner in [place], [place] [address] [place] [phone] Nam Cleveland APRN, C.N.P., D.N.P. [address] [place] [phone] 12/11/2023 2:15 PM CDT Clinical Communication Virtual Review in [place], [address] [phone] Medical Devices Implanted Type Area Postal Superintendent Device Identifier Shelf Expiration Date Model / Serial / Lot Misc Other Misc Other Anterior: Tooth Stent Inlay 7fr X 24cm - Moore [id number] Implanted:Qty: 2 on 04/25/2013 Ureteral Stent C.R. Description:Device Manufactu rer - [employer] Patient Care Division. Device Status Text - [id number]. Procedures Procedure Name Priority Date/Time Associated Diagnosis Comments LA HOME SLEEP TEST TYPE BEAN 4 Routine 10/20/2023 7:42 AM CDT Apnea Sleep Obstructive EXTI BASIC METABOLIC PANEL, S/P Routine 10/12/2023 7:[address] ABDOMEN PELVIS WITHOUT IV CONTRAST RAD - Routine (most inpatients and all outpatients) 08/28/2020 1:12 PM MASS SPECTROMETRY MANAGER Hypercalciuria Stone Kidney And Ureteral from Last 3 Months or Most Recently Relevant to Health Maintenance Results * Home sleep apnea test (HSAT) (10/20/2023 7:42 AM CDT) Narrative ONBASE - 10/20/2023 8:12 AM CDT SUMMARY A home sleep apnea test was performed using a peripheral arterial tonometry device. ??We recorded 489 min of valid data, of which 404 min were thought to represent sleep. ??Apneas and hypopneas occurred 18.1 times per hour. ??The mean oxygen saturation was 92% and the minimum was 86%. ?? Oxygen saturation was less than or equal to 88% for 2.4 min. ??Snoring >40 dB was recorded for 36.2% of the time. ??This was a technically satisfactory study. ??The results are consistent with a diagnosis of moderately severe obstructive sleep apnea syndrome, and represents a significant improvement over a similar home sleep apnea test performed in November 2018 which showed an AHI greater than 30. CLINICAL INTERPRETATION #1 Moderately severe obstructive sleep apnea syndrome, representing improvement in severity of sleep apnea since 2019 Enrico Brooke M.D. SLEEP CENTER ORDERAB LES ONBASE NA * CT Abdomen Pelvis without IV Contrast (08/28/2020 1:12 PM MASS SPECTROMETRY MANAGER) Anatomical Region Laterality Modality Abdomen, Pelvis, Abdominal R ST LOS, Abdominal ARZ LOS, Abdominal FLA LOS N/A Computed Tomograp hy, Computed Tomography 08/28/2020 2:51 PM MASS SPECTROMETRY MANAGER Impressions 08/28/2020 3:43 PM MASS SPECTROMETRY MANAGER 1. No urolithiasis or hydronephrosis. 2. 6 mm nodule in the right lung base. Recommend dedicated chest CT for further evaluation and to evaluate for other nodules. Narrative 08/28/2020 3:43 PM MASS SPECTROMETRY MANAGER EXAM: ??CT ABDOMEN PELVIS WITHOUT IV CONTRAST COMPARISON: ??CT 02/19/2016, 11/27/2015, 04/18/2013 FINDINGS: ?? : No urolithiasis or hydronephrosis. Small hyperattenuating lesion off the superior pole of the right kidney, measuring 80 Hounsfield units and most likely representing a hemorrhagic cyst. Stable left lower pole exophytic cyst. Faint perinephric stranding off the right interpole (3/79), is not masslike and appears benign. Other: 6 mm nodule in the right lung base (series 3 image 7) which was not seen on 11/27/2015. Small, likely intrafissural lymph node in the left lung base (series 3 image 3). Diffuse hepatic steatosis with focal sparing about the gallbladder fossa. Stable multilobulated mass with some calcification in the left lower pelvis (series 3 image 145-165) which may represent a benign mesenteric lymphangioma/hemangioma. Calcified mediastinal lymph nodes partially seen. Small fat-containing left inguinal hernia. Scattered aortobiiliac vascular calcifications. Procedure Note Kimberlyn Crews M.D. - 08/28/2020 EXAM: CT ABDOMEN PELVIS WITHOUT IV CONTRAST COMPARISON: CT 02/19/2016, 11/27/2015, 04/18/2013 FINDINGS: : No urolithiasis or hydronephrosis. Small hyperattenuating lesion offthe superior pole of the right kidney, measuring 80 Hounsfield units and mostlikely representing a hemorrhagic cyst. Stable left lower pole exophytic cyst.Faint perinephric stranding off the right interpole (), is not masslikeand appears benign. Other: 6 mm nodule in the right lung base (series 3 image 7) which was notseen on 11/27/2015. Small, likely intrafissural lymph node in the left lungbase (series 3 image 3). Diffuse hepatic steatosis with focal sparing aboutthe gallbladder fossa. Stable multilobulated mass with some calcification inthe left lower pelvis (series 3 image 145-165) which may represent a benign mesenteric lymphangioma/hemangioma. Calcified mediastinal lymph nodespartially seen. Small fat-containing left inguinal hernia. Scattered aortobiiliacvascular calcifications. IMPRESSION: 1. No urolithiasis or hydronephrosis. 2. 6 mm nodule in the right lung base. Recommend dedicated chest CT forfurther evaluation and to evaluate for other nodules. Lian Dubois P.A.-C. IMG CT PROCED URES from Last 3 Months or Most Recently Relevant to Health Maintenance
--- OUTSIDE RECORDS SUMMARY | 2023-10-28 14:25 | XMS_ITS ---
Author Name Unknown Organization [facility] Address [address] [place] [address] Care Team Providers Care Brick And Block Mason Name Role Phone Unavailable Unavailable Unavailable Surgery Details Not on file Complications Check Surgery Details section. Procedure Estimated Blood Loss Check Surgery Details section. Procedure Findings Check Surgery Details section. Procedure Specimens Taken Check Surgery Details section.
--- OUTSIDE RECORDS SUMMARY | 2023-10-28 14:25 | XMS_ITS | Clinical Summary ---
Author Name Unknown Organization [facility] Address [address] [place] [address] Care Team Providers Care Toby Maker Name Role Phone Unavailable Primary Care Provider Unavailabl e Source Comments Patient records contain information from all sites at [facility]. For routine questions regarding patient records, call [phone] during business hours, M-F 8:00 AM - 5:00 PM Central Time. Record requests for emergency care only can be directed to [phone] at any time.[facility] Allergies Active Allergy Reactions Criticality Noted Date [...] Adult DME Order 1 each 12/15/2022 4 Discontinued(Stephen yasmin) Active Problems Problem Noted Date Diagnosed Date Gastroesophageal Reflux Disease 12/13/2018 Morbid Obesity Body Mass Index 40.0-44.9 Adult 0 12/13/2018 Nephrolithiasis Calcium Oxalate 07/30/2013 Hypertension Essential Primary 09/28/2004 Hidradenitis Suppurativa 09/28/2004 Encounters Date Type Department Care Team Description 10/20/2023 9:30 AM CDT Office Visit [facility] [place], [place] [address] [place] [address] Fabián Medina M.D. Body Mass Index 30.0 To 30.9 Adult; Obstructive Sleep Apnea Adult 10/20/2023 7:15 AM CDT - 10/23/2023 11:59 PM CDT [facility] Encounter [facility] [place], [place] [address] [place] [address] Enrico Brooke M.D. Discharge Disposition: Home or Self Care 10/19/2023 11:59 AM CDT - 10/22/2023 11:59 PM CDT Hospital Encounter [facility] [place], [place] [address] [place] [address] Enrico Brooke M.D. Apnea Sleep Obstructive Discharge Disposition: Home or Self Care 09/14/2023 Clinical Communication [facility] [place], [place] [address] [place] [address] Enrico Brooke M.D. from Last 3 Months Social History Tobacco Use Types Packs/Day Years [...] often do you attend chur ch or rastafarian services? 1 to 4 times per year 01/03/2021 Do you belong to any clubs o r organizations such as hinduism groups, unions, fraternal or athletic groups, or [...] and heating? Not hard at all 01/03/2021 [facility] - Occupational [...] place to sleep or slept in a group home (including now)? No 01/03/2021 Nutrition Answer Date [...] Sex Assigned at Male 08/21/2018 1:37 PM CHILDBIRTH AND INFANT CARE TEACHER Gender Identity Male 08/21/2018 1:37 PM CHILDBIRTH AND INFANT CARE TEACHER Sexual Orientation Straight 08/21/2018 1: 37 PM CHILDBIRTH AND INFANT CARE TEACHER Last Filed Vital Signs Vital Sign Reading [...] 11/29/2023 1:40 PM CDT Appointment Division of oncology consultant in [place], [place] [address] [place] [phone] Nam Cleveland APRN, C.N.P., D.N.P. [address] [place] [phone] 12/11/2023 2:15 PM CDT Clinical Communication Virtual Review in [place], [address] [phone] Health Maintenance Due Date Last Done Comments CT Colonography 1950 Cologuard 1950 FIT 1950 Hepatitis C Screening 1950 COVID-19 Vaccine (5 - 2022-2 4 season) 2023 03/03/2022, 05/25/2021, 08/31/2020, Additional history exists Office Visit for Blood Press ure Check / Re-check 03/17/2023 12/15/2022 Depression Screening (Annual PHQ-2) 06/19/2023 Fall Risk Screen (Annual) 06/19/2023 Colonoscopy 10/02/2024 10/02/2014 Colorectal Cancer Screening 10/02/2024 Creatinine Level (Kidney Fun ction Test) 10/11/2024 10/12/2023, 09/11/2023, 03/07/2023, Additional history exists Potassium Level 10/11/2024 10/12/2023, 2 10/2023, 03/07/2023, Additional history exists Sodium Level 10/11/2024 10/12/2023, 2 10/2023, 03/07/2023, Additional history exists Fasting Glucose for Diabetes Screening 10/11/2026 10/12/2023, 09/11/2023, 03/07/2023, Additional history exists DTaP,Tdap,and Td Vaccines (3 - Td or Tdap) 03/17/2030 03/17/2020, 09/01/2010 Pneumococcal vaccine (65+ years) Completed 04/23/20 19, 06/02/2016 Zoster Vaccines Completed 01/03/2020, 08/19, 09/01/2010 Abdominal Aortic Aneurysm (A AA) Screen Discontinued 08/28/2020, 07/29/2013 Influenza Vaccine Completed 03/10/2023, , 03/09/2021, Additional history exists Medical Devices Implanted Type Area Signs Cleaner Device Identifier Shelf Expiration Date Model / Serial / Lot Misc Other Misc Other Anterior: Tooth Stent Inlay 7fr X 24cm - Moore [id number] Implanted:Qty: 2 on 04/25/2013 Ureteral Stent C.R.Bard Description:Device Manufactu rer - [employer] Patient Care Division. Device Status Text - [id number]. Procedures Procedure Name Priority Date/Time Associated Diagnosis Comments [place] HOME SLEEP TEST TYPE BEAN 4 Routine 10/20/2023 7:42 AM CDT Apnea Sleep Obstructive EXTI BASIC METABOLIC PANEL, S/P Routine 10/12/2023 7:[address] ABDOMEN PELVIS WITHOUT IV CONTRAST RAD - Routine (most inpatients and all outpatients) 08/28/2020 1:12 PM CHILDBIRTH AND INFANT CARE TEACHER Hypercalciuria Stone Kidney And Ureteral from Last [...] Pelvis without IV Contrast (08/28/2020 1:12 PM CHILDBIRTH AND INFANT CARE TEACHER) Anatomical Region Laterality Modality Abdomen, Pelvis, Abdominal R ST LOS, Abdominal ARZ LOS, Abdominal FLA LOS N/A Computed Tomograp hy, Computed Tomography 08/28/2020 2:51 PM CHILDBIRTH AND INFANT CARE TEACHER Impressions 08/28/2020 3:43 PM CHILDBIRTH AND INFANT CARE TEACHER 1. No urolithiasis or hydronephrosis. 2. 6 mm nodule in the right lung base. Recommend dedicated chest CT for further evaluation and to evaluate for other nodules. Narrative 08/28/2020 3:43 PM CHILDBIRTH AND INFANT CARE TEACHER EXAM: ??CT ABDOMEN PELVIS WITHOUT IV CONTRAST [...] hernia. Scattered aortobiiliac vascular calcifications. Procedure Note Kimebrlyn Crews M.D. - 08/28/2020 EXAM: CT ABDOMEN PELVIS WITHOUT IV CONTRAST COMPARISON: CT 02/19/2016, 11/27/2015, 04/18/2013 FINDINGS: : No urolithiasis or hydronephrosis. Small hyperattenuating lesion offthe superior pole of the right kidney, measuring 80 Hounsfield units and mostlikely representing a hemorrhagic cyst. Stable left lower pole exophytic cyst.Faint perinephric stranding off the right interpole (3/79), is not masslikeand appears benign. Other: 6 [...]
--- OUTSIDE RECORDS SUMMARY | 2023-10-28 14:25 | XMS_ITS | Continuity of Care Document ---
Author Name Unknown Organization [facility] Address [address] [address] [place] [address] Phone Care Team Providers Care Gallery Or Museum Guide Name Role Phone Unavailable Unavailable Unavailable Allergies, Adverse Reactions, Alerts Substance Reaction Status Criticality Sulfa (Sulfonamide Antibiotics) Active No Information Medications Medication Instructions Dosage Effective Dates (start - stop) Status Comments atenolol 25 mg tablet take 1 tablet by o ral route every day 25 MG - Active doxazosin 1 mg tablet take 1 tablet by o ral route every day 1 MG - Active furosemide 20 mg tablet take 1 tablet by oral route every day 20 MG - Active Procedures Procedure Date UMP Charges Advance Directives Directive Yes / No Effective Date File Name No Information Encounters Encounter Description Practice Location Reason(s) For Visit Diagnoses Date Provider Providers Copied on Encounter [facility], [address] [address], [place], [place], [id number], tel:[phone] [facility] Screening colonoscopyColon Cancer Screening 5 No Information Referring Provider: Referral Self, USE FOR SELF REFERRALS. Family History Family Member Type Diagnosis Age At Onset No Information Payers Payer name Insurance type Covered green party ID Authoriza tion(s) No Information Social History Type Description Quantity Date Captured Comments Alcohol Use Details Unknown Caffeine Use Details Unknown Tobacco Use Status No Information Smoking Status Never smoker Sex Male Vital Signs Date / Time: Height Weight BMI Pulse Rate Blood Pressure Temperature Respiratory Rate Body Surface Area Head Circumference Head Circ. Percentile Wt./Kirt. Percentile BMI percentile Pulse Ox Inhaled Ox 8:04 AM 70.00 in 113.380 kg (250.00 lbs) 35.9 0 kg/m eter (2) 55 /min 148/95 mm[Hg] 0.00 F 16 /min 95 % Chief Complaint And Reason For Visit No Information Reason For Referral Reason For Referral No Information History Of Present Illness Encounter Date Complaint History Of Prese nt Illness No Information Functional Status Date Functional Assessmen t No Information Instructions Date Instruction Additional Infor keaton Colon Cancer Prevention Related to Screening colonoscopy Assessments Type Assessment Date assessment Screening colonoscopy 5 Patient Care Teams Name Effective Dates (start - stop) Status Members No Information
--- OUTSIDE RECORDS SUMMARY | 2023-10-28 14:25 | XMS_ITS | Encounter Summary ---
Author Name Unknown Organization [facility] Address [address] [place] [id number] Care Team Providers Care Senior Systems Administrator Name Role Phone Unavailable Primary Care Provider Unavailabl e Reason for Visit * Outpatient (Routine) - Closed Specialty Diagnoses / Procedures Referred By Jorge Alberto t Referred To Contact Diagnoses Apnea Sleep Obstructive Procedures Home sleep apnea test (HSAT) Enrico Brooke M.D. [address] [place] [phone] [facility] Referral ID Status Reason Start Date Expiration Date Visits Re quested Visits Authorized [id number] Closed 10/06/2023 10/05/2024 1 1 Encounter Details Date Type Department Care Team (Latest Contact Info) Description 10/20/2023 7:15 AM CDT - 10/23/2023 11:59 PM CDT Hospital Encounter [facility] in [place], [place] [address] [place] [phone] Enrico Brooke M.D. [address] [place] [phone] Discharge Disposition: Home or Self Care Social History Tobacco Use Types Packs/Day Years Used Date Smoking Tobacco: Never Smokeless Tobacco: Never Comments:cured at 8 years ol d Alcohol Use Standard Drinks/Week Comments Yes 2 [...] often do you attend chur ch or buddhism services? 1 to 4 times per year 01/03/2021 Do you belong to any clubs o r organizations such as baptism groups, unions, fraternal or athletic groups, or [...] and heating? Not hard at all 01/03/2021 [facility] [place] [facility] of Occupat ional Health - Occupational Stress [...] place to sleep or slept in a fdc (including now)? No 01/03/2021 Nutrition Answer Date [...] Sex Assigned at Male 08/21/2018 1:37 PM IMPREGNATING MACHINE OPERATOR Gender Identity Male 08/21/2018 1:37 PM IMPREGNATING MACHINE OPERATOR Sexual Orientation Straight 08/21/2018 1: 37 PM IMPREGNATING MACHINE OPERATOR documented as of this encounter Medications at Time of Discharge Medication Sig Dispensed Refills Start Date End Date allopurinol (ZYLOPRIM) 300 mg tablet 07/09/2018 allopurinoL (ZYLOPRIM) 300 mg tablet Take 300 mg by mouth. 09/12/2022 amLODIPine (NORVASC) 10 mg tablet Take 1 tablet by mouth every evening. 05/13/2013 ascorbic acid, vitamin C, (vitamin C) 1,000 mg tablet Take 1 tablet by mouth daily. 04/22/2013 aspirin (ADULT LOW DOSE ASPIRIN) [address] tablet Take 1 tablet by mouth daily. 04/22/[address] tablet Take by mouth. atenolol (TENORMIN) 50 mg tablet 07/10/2018 blood sugar diagnostic strips (FreeStyle Lite Strips) Use to test one time per day. 04/26/2022 DME CPAPIndications:Obstructi ve Sleep Apnea Adult DME Order 1 each 10/20/2023 doxazosin (CARDURA) 4 mg tablet Take 1 tablet by mouth every evening. 04/22/2013 Eliquis 5 mg tablet Take 5 mg by mouth. 03/28/2022 famotidine (PEPCID) 20 mg tablet Take 20 mg by mouth. 09/12/2022 flaxseed oil 1,000 mg capsule Take 1,000 mg by mouth. 02/12/2016 fluorouraciL (EFUDEX) 5 % cream 02/01/2022 furosemide (LASIX) 20 mg tablet 07/10/2018 glipiZIDE (GLUCOTROL XL) 2.5 mg 24 hr tablet 03/03/2022 losartan (COZAAR) 50 mg tablet Take 1 tablet by mouth 2 (two) times a day. 04/22/2013 metFORMIN XR (GLUCOPHAGE-XR) 500 mg 24 hr tablet Take 2 tablets by mouth 2 (two) times a day with meals. 12/14/2022 metoprolol succinate (TOPROL-XL) 50 mg 24 hr tablet 02/24/2022 MULTIVITAMIN ORAL Take by mouth. multivitamin tablet Take 1 tablet by mouth daily. 04/22/2013 omeprazole (PriLOSEC) [address] capsule Take 1 capsule by mouth as needed. 11/14/2014 tamsulosin (FLOMAX) 0.4 mg 24 hr capsule Take by mouth. 02/02/2018 documented as of this encounter Plan of Treatment Upcoming Encounters Date Type Department Care Team (Latest Contact Info) Description 11/29/2023 1:40 PM CDT Appointment Division of oven operator in [place], [place] 200 [place] [phone] Nam Cleveland, MOY, C.N.P., D.N.P. [address] [place] [phone] 12/11/2023 2:15 PM CDT Clinical Communication Virtual Review in [place], [place] [address] [place] [phone] documented as of this encounter Procedures Procedure Name Priority Date/Time Associated Diagnosis Comments GA HOME SLEEP TEST TYPE BEAN 4 Routine 10/20/2023 7:42 AM CDT Apnea Sleep Obstructive documented in this encounter Results * Home sleep apnea test (HSAT) [...] M.D. SLEEP CENTER ORDERAB LES ONBASE NA documented in this encounter Visit Diagnoses Not on filedocumented in this encounter
--- OUTSIDE RECORDS SUMMARY | 2023-10-28 14:26 | XMS_ITS | Encounter Summary ---
Author Name Unknown Organization [facility] Address [address] [place] [address] Care Team Providers Care Change Of Address Clerk Name Role Phone Unavailable Primary Care Provider Unavailabl e Reason for Referral * Outpatient (Routine) - Authorized Specialty Diagnoses / Procedures Referred By Jorge Alberto armas Referred To Contact Sleep Medicine Fabián Medina M.D. [address] [place] [phone] [facility] Referral ID Status Reason Start Date Expiration Date V isits Requested Visits Authorized [id number] Authorized 10/20/2023 04/20/2025 1 1 Reason for Visit * Outpatient (Routine) - Closed Specialty Diagnoses / Procedures Referred By Jorge Alberto armas Referred To Contact Sleep Medicine Enrico Brooke M.D. [address] [place] [phone] [facility] Referral ID Status Reason Start Date Expiration Date Visits Re quested Visits Authorized [id number] Closed 10/06/2023 04/06/2025 1 1 Encounter Details Date Type Department Care Team ([facility] st Contact Info) Description 10/20/2023 9:30 AM CDT Office Visit [facility] in [place], [place] [address] [place] [phone] Fabián Medina M.D. [address] [place] [phone] Body Mass Index 30.0 To 30.9 Adult; Obstructive Sleep Apnea Adult Social History Tobacco Use Types Packs/Day Years [...] often do you attend chur ch or temple services? 1 to 4 times per year 01/03/2021 Do you belong to any clubs o r organizations such as gnosticist groups, unions, fraternal or athletic groups, or [...] and heating? Not hard at all 01/03/2021 [facility] of Occupat ional Health - Occupational Stress [...] place to sleep or slept in a jail (including now)? No 01/03/2021 Nutrition Answer Date Recorded On average, how many serving s of fruits and vegetables do you eat per day (serving size is equal to 1 cup or approximately the size of a tennis ball)? 0-1 01/03/2021 Dental Answer Date Recorded Dental: Regular Dentist Yes 06/20/19 23 Employment Answer Date Recorded Employment status Employed and actively working without restrictions 01/03/2021 Education Answer Date Recorded What is the highest level of school you have completed or the highest degree you have received? Bachelor's degree (e.g., BA, AB, BS) 12/14/2018 Sex and Gender Information Value Date Recorded Sex Assigned at Male 08/21/2018 1:37 PM FUR DYER Gender Identity Male 08/21/2018 1:37 PM FUR DYER Sexual Orientation Straight 08/21/2018 1: 37 PM FUR DYER documented as of this encounter Patient Instructions * Attachments The following attachments cannot be sent through Care Everywhere. * How to Keep Your Brain Healthy And how to know if you may have a problem (Uruguayan) documented in this encounter Progress Notes * Fabián Medina M.D. - 10/20/2023 9:30 AM CDT SUBJECTIVE Sleep Study Report Visit ASSESSMENT / PLAN #1 Moderately severe obstructive sleep apnea syndrome # 2 BMI greater than 30 I reviewed the results of the home sleep apnea test with the patient in detail, including graphics and tabular data. It does show that he has had significant improvement in his obstructive sleep apnea, but unfortunately he still has moderately severe obstructive sleep apnea that does require treatment. We discussed this at some length. He is willing to do this. We also discussed that it might be convenient for him to obtain a travel CPAP device and I gave him a prescription for that. He has been reading a book about dementia prevention, and I re-emphasized the importance of treatment of obstructive sleep apnea in decreasing the risks for developing cognitive decline. We also talked about importance of healthy diet and weight maintenance. He does stay active both mentally and physically, and is enthusiastic about contributing to his community. I believe he should be seen again in 1 year. I personally spent 30 minutes in care of the patient today. Time includes both zaf-ahve-ts-face cywhccy-no-oaoc patient care. documented in this encounter Plan of Treatment Upcoming Encounters Date Type Department Care Team (Latest Contact Info) Description 11/29/2023 1:40 PM CDT Appointment Division of sales forecast analyst in [place], [place] [address] [place] [phone] Nam Cleveland, MOY, C.N.P., D.N.P. [address] [place] [phone] 12/11/2023 2:15 PM CDT Clinical Communication Virtual Review in [place], [place] 200 [place] [phone] Scheduled Referrals Name Type Priority Associated Diagnoses Orde r Schedule Sleep Medicine nurse visit (clinic) Outpatient Referral Routine Expected: 10/19/2024, Expires: 01/19/2025 documented as of this encounter Visit Diagnoses Diagnosis Body Mass Index 30.0 To 30.9 Adult Obstructive Sleep Apnea Adult documented in this encounter
--- OUTSIDE RECORDS SUMMARY | 2023-10-28 14:26 | XMS_ITS | Continuity of Care Document ---
Author Name [facility] Organization [facility] Care Team Providers Care Freight Car Loader Name Role Phone [facility] Unavailable Unavailable Medications Combined list of outpatient medications from Department of Defense and Veterans Affairs facilities.Medications provided include 1) outpatient medications from the last 15 months, and 2) patient-reported medications. Medication Details Route Status Patient Instructions Prescription Expires Prescription Number Last Dispense Date Ordering Provider Order Date Order Qty Source ALLOPURINOL (ALLOPURINO L), 300MG, TABLET, ORAL, [facility], 500 ea. BOTTLE Active [id number] 4 2023 90 Pharmac y Data Transac tion Service Facilit y AMLODIPINE BESYLATE (AMLODIPINE BESYLATE), 10 MG, TABLET, ORAL, [employer], 1000 ea. BOTTLE Active [id number] 4 2023 90 Pharmac y Data Transac tion Service Facilit y AMLODIPINE BESYLATE (AMLODIPINE BESYLATE), 10 MG, TABLET, ORAL, [employer]ARMA [employer], 1000 ea. BOTTLE Cancele d [id number] : 2023 0 Pharmac y Data Transac tion Service Facilit y AMLODIPINE BESYLATE (AMLODIPINE BESYLATE), 10 MG, TABLET, ORAL, [employer] LLC, 1000 ea. BOTTLE Active [id number] 4 2023 90 Pharmac y Data Transac tion Service Facilit y CARVEDILOL (carvedilol ), 25 MG, TABLET, ORAL, [employer] 500 ea. BOTTLE Active [id number] 4 2023 180 Pharmac y Data Transac tion Service Facilit y DOXAZOSIN MESYLATE (DOXAZOSIN MESYLATE), 4 MG, TABLET, ORAL, [employer], 100 ea. BOTTLE Active [id number] 2023 180 Pharmac y Data Transac tion Service Facilit y DOXAZOSIN MESYLATE (DOXAZOSIN MESYLATE), 4 MG, TABLET, ORAL, [employer], 100 ea. BOTTLE Active [id number] 2023 90 Pharmac y Data Transac tion Service Facilit y ELIQUIS (APIXABAN), 5 MG, TABLET, ORAL, [facility] , 60 ea. BOTTLE Active [id number] 2023 180 Pharmac y Data Transac tion Service Facilit y ELIQUIS (APIXABAN), 5 MG, TABLET, ORAL, [facility] , 60 ea. BOTTLE Active [id number] 4 2023 180 Pharmac y Data Transac tion Service Facilit y FAMOTIDINE (famotidine ), 20 MG, TABLET, ORAL, [employer] 1000 ea. BOTTLE Active [id number] 2023 180 Pharmac y Data Transac tion Service Facilit y FREESTYLE LANCETS (lancets), 28 GAUGE, EACH, [employer]ET[employer], 100 ea. PACKET Active [id number] 4 2023 400 Pharmac y Data Transac tion Service Facilit y FREESTYLE LITE TEST STRIP (blood sugar diagnostic) , STRIP, [employer]ETES, 50 ea. BOX Active [id number] 4 2023 100 Pharmac y Data Transac tion Service Facilit y FUROSEMIDE (furosemide ), 20 MG, TABLET, ORAL, [employer], 1000 ea. BOTTLE Cancele d [id number] : 2023 0 Pharmac y Data Transac tion Service Facilit y FUROSEMIDE (furosemide ), 20 MG, TABLET, ORAL, [employer], 1000 ea. BOTTLE Active [id number] 4 2023 90 Pharmac y Data Transac tion Service Facilit y FUROSEMIDE (furosemide ), 20 MG, TABLET, ORAL, [employer], 1000 ea. BOTTLE Active [id number] 2023 90 Pharmac y Data Transac tion Service Facilit y IMIQUIMOD (IMIQUIMOD) , 5 %, CREAM PACK, TOPICAL, [employer] [facility], 24 ea. PACKET Active [id number] 2023 24 Pharmac y Data Transac tion Service Facilit y JARDIANCE (EMPAGLIFLO ZIN), 10 MG, TABLET, ORAL, [employer]., 90 ea. BOTTLE Active [id number] 2023 90 Pharmac y Data Transac tion Service Facilit y JARDIANCE (EMPAGLIFLO ZIN), 25 MG, TABLET, ORAL, [employer] ING., 30 ea. BOTTLE Active [id number] 2023 90 Pharmac y Data Transac tion Service Facilit y LOSARTAN POTASSIUM (losartan potassium), 100 MG, TABLET, ORAL, [employer]ACE, 1000 ea. BOTTLE Active [id number] 4 2023 90 Pharmac y Data Transac tion Service Facilit y METFORMIN HCL ER (metformin HCl), 500 MG, TAB ER 24H, ORAL, [employer], 1000 ea. BOTTLE Active [id number] 2023 180 Pharmac y Data Transac tion Service Facilit y METFORMIN HCL ER (metformin HCl), 500 MG, TAB ER 24H, ORAL, [employer], 1000 ea. BOTTLE Active [id number] 2023 360 Pharmac y Data Transac tion Service Facilit y ROSUVASTATI N CALCIUM (rosuvastat in calcium), 10 MG, TABLET, ORAL, [employer] 1000 ea. BOTTLE Active [id number] 4 2023 90 Pharmac y Data Transac tion Service Facilit y SILDENAFIL CITRATE (sildenafil citrate), 50 MG, TABLET, ORAL, [employer] PHARMACE, 100 ea. BOTTLE Active [id number] 3 2023 30 Pharmac y Data Transac tion Service Facilit y SILDENAFIL CITRATE (sildenafil citrate), 50 MG, TABLET, ORAL, [employer]ARMACE, 100 ea. BOTTLE Active [id number] 4 2023 30 Pharmac y Data Transac tion Service Facilit y SPIRONOLACT ONE (spironolac tone), 25 MG, TABLET, ORAL, [facility], 500 ea. BOTTLE Active [id number] 2023 30 Pharmac y Data Transac tion Service Facilit y Immunizations Combined list of available immunizations from the Department of Defense and Veterans Affairs facilities. Immunization Series Date Given Administered By Site Reaction Lot Number CVX Code Drug Cellophane Wrapping Examiner Status Comments Source COVID-19 (MODERNA), MRNA, LNP-S, PF, 100 MCG/0.5 ML DOSE 2 2020 207 complet ed MOD: [id number]; 1 [facility] COVID-19 (MODERNA), MRNA, LNP-S, PF, 100 MCG/0.5 ML DOSE 1 2020 207 complet ed MOD; [id number]; 1 [facility] zoster recombinant 2019 CLYDE, () Not Given zoster recombina nt [facility] zoster recombinant 2019 AAMIR TANG () Not Given zoster recombina nt [facility] Influenza, seasonal, injectable 2013 MARIA ANTONIA SANTA () Not Given Influenza , seasonal, injectabl e DoD Social History Combined list of available smoking, tobacco, and other social history from Department of Defense and Veterans Affairs facilities. Social History Type Response Date Comment Sourc e This section is an empty social history section. DoD
--- OUTSIDE RECORDS SUMMARY | 2023-10-28 14:26 | XMS_ITS | Encounter Summary ---
Author Name Unknown Organization [facility] Address [address] [place] [address] Care Team Providers Care Plastics Scientist Name Role Phone Unavailable Primary Care Provider Unavailabl e Reason for Referral * Outpatient (Routine) - Closed Specialty Diagnoses / Procedures Referred By Jorge Alberto armas Referred To Contact Diagnoses Apnea Sleep Obstructive Procedures Home sleep apnea test (HSAT) Enrico Brooke M.D. [address] [place] [phone] [facility] Referral ID Status Reason Start Date Expiration Date Visits Re quested Visits Authorized [id number] Closed 10/06/2023 10/05/2024 1 1 Reason for Visit * Outpatient (Routine) - Closed Specialty Diagnoses / Procedures Referred By Jorge Alberto armas Referred To Contact Diagnoses Apnea Sleep Obstructive Procedures Home sleep apnea test (HSAT) Enrico Brooke M.D. [address] [place] [phone] [facility] Referral ID Status Reason Start Date Expiration Date Visits Re quested Visits Authorized [id number] Closed 10/06/2023 10/05/2024 1 1 Encounter Details Date Type Department Care Team (Latest Contact Info) Description 10/19/2023 11:59 AM CDT - 10/22/2023 11:59 PM CDT Hospital Encounter [facility] in [place], [place] [address] [place] [phone] Enrico Brooke M.D. 200 [place] [phone] Apnea Sleep Obstructive Discharge Disposition: Home or Self Care Social [...] often do you attend chur ch or advent services? 1 to 4 times per year 01/03/2021 Do you belong to any clubs o r organizations such as yarsanism groups, unions, fraternal or athletic groups, or [...] and heating? Not hard at all 01/03/2021 [facility] of Occupat ional Health - Occupational Stress [...] place to sleep or slept in a residential (including now)? 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 [address] [place] [phone] 12/11/2023 2:15 PM CDT Clinical Communication Virtual Review in [place], [place] 200 [place] [phone] documented as of this encounter Procedures Procedure Name Priority Date/Time Associated Diagnosis Comments ME HOME SLEEP TEST TYPE BEAN 4 Routine [...] NA documented in this encounter Visit Diagnoses Diagnosis Apnea Sleep Obstructive documented in this encounter
--- OUTSIDE RECORDS SUMMARY | 2023-10-28 14:26 | XMS_ITS | Clinical Summary ---
Author Name Unknown Organization [facility] Address [place], [place] [address] Care Team Providers Care Manager Clinical Informatics Name Role Phone Charles Thomas MD Primary Care Provider Allergies Active Allergy Reactions Criticality Noted Date Comments Jeremy Inhibitors Hives 09/11/2006 Hydrochlorothiazide Hives 09/11/2006 Sulfa (Sulfonamide Antibiotics) Hives 08/18 Medications Medication Sig Dispensed Refills Start Date End Date Status MULTIVITAMIN ORAL take 1 tablet by mouth daily 0 Active VITAMIN C 1,000 MG TAB Once daily 0 0 05/20/2008 Active flaxseed oil 1,000 mg cap Take 1 capsule by mouth once daily. 02/12/2016 Active FreeStyle Lite Meter TEST FOUR TIMES A DAY 02/24/2022 Active medication order composer Turmeric 1000mg once daily. 0 05/31/2022 Active Eliquis 5 mg tabletIndications :Atrial fibrillation, unspecified type (HC) TAKE 1 TABLET TWICE A DAY 180 Tablet 3 03/03/2023 Active sildenafil citrate (VIAGRA) 50 mg tabletIndications :Erectile dysfunction, unspecified erectile dysfunction type One to two tablets oral daily as needed for erectile dysfunction. Take 30min to 4 hours before sexual activity. Max 100mg/24hr 30 Tablet 5 03/19/2023 Active metFORMIN (GLUCOPHAGE XR) 500 mg Extended-Release tabletIndications :Type 2 diabetes mellitus without complication, without long-term current use of insulin (HC) Take 2 Tablets (1,000 mg) by mouth once daily with evening meal. 180 Tablet 1 09/13/2023 Active allopurinoL (ZYLOPRIM) 300 mg tabletIndications :Gout, unspecified cause, unspecified chronicity, unspecified site Take 1 Tablet (300 mg) by mouth once daily. 90 Tablet 3 09/13/2023 Active furosemide (LASIX) 20 mg tabletIndications :Essential hypertension Take 1 Tablet (20 mg) by mouth every morning. 90 Tablet 3 09/13/2023 Active losartan (COZAAR) 100 mg tabletIndications :Essential hypertension Take 1 Tablet (100 mg) by mouth once daily. 90 Tablet 3 09/13/2023 Active rosuvastatin (CRESTOR) 10 mg tabletIndications :Type 2 diabetes mellitus without complication, without long-term current use of insulin (HC) Take 1 Tablet (10 mg) by mouth at bedtime. 90 Tablet 3 09/13/2023 Active carvediloL (COREG) 25 mg tabletIndications :Essential hypertension Take 1 Tablet (25 mg) by mouth two times daily with meals. 180 Tablet 3 09/13/2023 Active FreeStyle Lite Strips stripIndications: Type 2 diabetes mellitus without complication, without long-term current use of insulin (HC) USE TO TEST ONCE DAILY 100 Each 09/16/2023 Active FreeStyle Lancets 28 gauge miscIndications:T ype 2 diabetes mellitus without complication, without long-term current use of insulin (HC) USE DIRECTED. TEST FOUR TIMES A DAY. 400 Each 09/16/2023 Active empagliflozin (JARDIANCE) 25 mg tabletIndications :Type 2 diabetes mellitus without complication, without long-term current use of insulin (HC) Take 1 Tablet (25 mg) by mouth once daily. 90 Tablet 3 10/04/2023 Active spironolactone (ALDACTONE) 25 mg tabletIndications :Benign essential HTN Take 1 Tablet (25 mg) by mouth every morning. 30 Tablet 12 10/04/2023 Active doxazosin (CARDURA) 4 mg tabletIndications :Essential hypertension Take 2 Tablets (8 mg) by mouth at bedtime. 180 Tablet 3 10/24/2023 Active famotidine (PEPCID) 20 mg tabletIndications :Chronic GERD TAKE 1 TABLET TWICE A DAY 180 Tablet 3 10/28/2023 Active amLODIPine (NORVASC) 10 mg tabletIndications :Essential hypertension Take 1 Tablet (10 mg) by mouth once daily. 90 Tablet 2 10/28/2023 Active famotidine (PEPCID) 20 mg tabletIndications :Chronic GERD Take 1 Tablet (20 mg) by mouth two times daily. 180 Tablet 3 09/12/2022 10/28/19 24 Discontinued empagliflozin (JARDIANCE) 10 mg tabletIndications :Type 2 diabetes mellitus without complication, without long-term current use of insulin (HC) Take 1 Tablet (10 mg) by mouth once daily. 90 Tablet 1 09/13/2023 10/04/19 24 Discontinued(Reo rder (E-cancel not sent)) amLODIPine (NORVASC) 10 mg tabletIndications :Essential hypertension Take 1 Tablet (10 mg) by mouth once daily. 90 Tablet 3 09/13/2023 10/28/19 24 Discontinued(*Av ailability/Formu zaida change/Cost of medication) doxazosin (CARDURA) 4 mg tabletIndications :Essential hypertension Take 1 Tablet (4 mg) by mouth at bedtime. 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 06/2023 0 09/13/2023 Erectile dysfunction 03/10/2023 Moderately increased albuminuria 09/12/2022 Persistent atrial fibrillation (HC) DCCV 022 03/03/2022 Type 2 diabetes mellitus wit hout complication, without long-term current use of insulin 09/02/2021 Kidney stones 01/31/2014 Unspecified essential hypertension 09/11/2006 Esophageal reflux 09/11/2006 Gout Obesity Resolved Problems Problem Noted Date Diagnosed Date Resolved Date Proteinuria 09/13/2023 10/04/2023 Morbid obesity 09/13/2023 10/04/2023 TWYLA on CPAP 03/03/2022 03/10/2023 Prediabetes 03/09/2021 09/02/2021 Other abnormal glucose 09/11/200603/09 Encounters Date Type Department Care Team Description 10/26/2023 Refill [facility] [address], [place] [id number] Charles Thomas MD Refill Request (Amlodipine, Famotidine) 10/24/2023 1:15 PM CDT Office Visit [facility] [address] [place] [address] Charles Thomas MD Follow Up (Medication changes ) 10/24/2023 8:15 AM CDT Office Visit [facility] [address] [place] [phone] Shadi Stafford MD Consult (Discuss Imaging, right hinge jaw pain, has upcoming [facility] appointment. Looking for game plan.) 10/24/2023 Travel 10/12/2023 7:15 AM CDT Orders Only [facility] [address] [place] [address] Lab, [place] 10/12/2023 Travel 10/04/2023 8:50 AM CDT Office Visit [facility] [address] [place] [address] Charles Thomas MD Follow Up (Medication changes) 10/04/2023 Travel 10/02/2023 8:09 AM CDT - 10/02/2023 11:59 PM CDT Hospital Encounter [address] [address] Charles Thomas MD Abnormal CT of paranasal sinuses 10/02/2023 Travel 09/25/2023 Telephone [facility] [address] [place] [address] Charles Thomas MD Medication Management 09/25/2023 Telephone [facility] [address] [place] [address] Shadi Stafford MD Appointment Request (Abnormal CT) 09/22/2023 Orders Only [facility] [address] [place] [address] Charles Thomas MD <No scans attached> 09/21/2023 1:00 PM CDT Ancillary Procedure [facility] [address] [place] [address] 09/21/2023 Travel 09/15/2023 Telephone [facility] [address] [place] [address] Charles Thomas MD Medication Management 09/15/2023 Refill [facility] [address] [place] [address] Charles Thomas MD Refill Request (Freestyle Lite Strips, Freestyle Lancets) 09/13/2023 2:55 PM CDT Office Visit [facility] [address] [place] [address] Charles Thomas MD Diabetes (6 month follow up) 09/13/2023 Travel 09/11/2023 8:45 AM CDT Orders Only [facility] [address] [place] [address] Lab[facility] [place] 09/11/2023 Travel 09/11/2023 Telephone [facility] [address] [place] [address] Charles Thomas MD Lab (TESTOSTERONE ) 08/17/2023 Telephone [facility] [address] [place] [address] Charles Thomas MD Lab from Last 3 Months Immunizations Name Administration Dates Next Due COVID-19 vaccine (Moderna 10 0mcg/0.5mL) PF, MDV 08/31/2020,08/03/2020 COVID-19 vaccine (Moderna Kavon tito 50mcg/0.25mL) PF, MDV 05/25/2021 COVID-19 vaccine (Pfizer-Bio NTech 30mcg/0.3mL) 12YO+ BIVALENT PF, MDV 03/03/2022 Hepatitis A (Adult) 01/31/2006,06/24/2005 Hepatitis B (Adult) 01/31/2006,08/16/2005,2005 Influenza, High-dose Inactivated 06/02/2016 Influenza, IIV3 (Age 6-35 mos) 03/03/2011 Influenza, IIV3 (Age >=3 years) 03/03/2011,05/20 Influenza, IIV4 04/02/2014 Influenza, Inactivated AIIV4 (Age 65+ Years) Preserv Free 03/10/2023,06/16/2022,03/09/2021 Influenza, Inactivated IIV3 (Age 65+ Years) Preserv Free 04/23/2019 Pneumococcal Poly,23-Valent (Pneumovax) 04/23/20 19 Pneumococcal conj 13-Valent (Prevnar 13) 016 Td (Age >=7 Years) 03/17/2020,06/19/2001 Tdap 09/01/2010 Zoster (Shingrix-RZV, recombinant) 01/03/2020, Zoster (Zostavax-ZVL, live) 09/01/2010 Family History Medical History Relation Name Comments Hypertension Father Diabetes Mother Hypertension Mother Psychiatric illness Mother depressi on Cancer-colon No Family History Cancer-prostate No Family History Relation Name Status Comments Father Mother Social History Tobacco Use Types Packs/Day Years Used Date Smoking Tobacco: Never Smokeless Tobacco: Never Tobacco Cessation:Counseling Given: No Alcohol Use Standard Drinks/Week Comments Yes 3 (1 standard drink = 0.6 oz pur e alcohol) PHQ-2 Answer Date Recorded PHQ-2 TOTAL SCORE 0 09/12/2022 Social Connections Answer Date Recorded Frequency of Communication with Friends and Fami ly 0 03/10/2023 Alcohol Use Answer Date Recorded How often do you have a drink containing alcohol ? 1 12/15/2021 How many drinks containing a lcohol do you have on a typical day when you are drinking? 0 12/15/2021 How often do you have five or more drinks on one occasion? 0 12/15/2021 Financial Resource Strain Answer Date R ecorded Difficulty of Paying Living Expenses 3 03/10/2023 Difficulty of Paying Living Expenses Not on file 03/10/2023 Food Insecurity Answer Date Recorded Worried About Running Out of Food in the Last Ye ar 1 03/10/2023 Transportation Needs Answer Date Record ed Lack of Transportation (Medical) 1 03/10/2023 Housing Stability Answer Date Recorded Unable to Pay for Housing in the Last Year 1 03/10/2023 Sex and Gender Information Value Date Recorded Sex Assigned at Not on file Gender Identity Not on file Sexual Orientation Not on file Obstetrics History Last Filed Vital Signs Vital Sign Reading Time Taken Comments Blood Pressure 148/78 10/24/2023 1:24 PM CDT Pulse 54 10/24/2023 1:08 PM CDT Temperature 36.7 ??C (98 ??F) 06/08/2022 1:00 PM [employer]ADI [employer]ENDER Respiratory Rate 17 06/08/2022 1:00 PM [employer]ADI T[employer]ER Oxygen Saturation 98% 10/24/2023 1:08 PM CDT Inhaled Oxygen Concentration - - Weight 116.4 kg (256 lb 9.6 oz) 10/24/2023 1:08 PM CDT Height 176.1 cm (5' 9.33) 03/10/2023 8:26 AM CD T Body Mass Index 37.53 03/10/2023 8:26 AM CDT Plan of Treatment Upcoming Encounters Date Type Department Care Team (Late st Contact Info) Description 12/19/2023 10:00 AM CDT Office Visit [facility] [address] [place] [phone] Som Rodriguez MD [address] [facility] [address] [place] [address] 02/14/2024 7:30 AM CDT Orders Only [facility] [address] [place] [address] [facility] [place] 02/21/2024 8:50 AM CDT Office Visit [facility] [address] [place] [address] Charles Thomas MD [address] [place] [address] Health Maintenance Due Date Last Done Comments COVID-19 vaccine series (2022- season) 2023 03/03/2022, 05/25/2021, 08/31/2020, Additional history exists Depression screening for age 12+ 09/13/2023 09/12/2022, 09/03/2021, 09/03/2021, Additional history exists Medicare Wellness for age 65+ 09/13/2023 09/12/2022, 09/02/2021 Influenza for age 65+ 02/18/2024 03/10/2023 , 06/16/2022, 03/09/2021, Additional history exists BMI (ht and wt on same day) for age 18+ 03/10/2024 03/10/2023, 09/12/2022, 09/02/2021, Additional history exists Colonoscopy through age 75 10/02/202410/02, 04/19/2004 (Completed outside of [facility]) Lipids for age 45-75 09/10/2028 09/11/2023, 09/05/2022, 09/02/2021, Additional history exists Tetanus booster 03/17/2030 03/17/2020, 08/17, 06/19/2001 Tdap Completed 09/01/2010 Pneumococcal series for age 65+ Completed 9, 06/02/2016 Hepatitis C screening for ag e 18-79 Completed 08/29/2019 Zoster (shingles) series for age 50+ Completed 01/03/2020, 09/16/2019, 09/01/2010 Procedures Procedure Name Priority Date/Time Associated Diagnosis Comments BASIC METABOLIC PANEL Routine 10/12/2023 7:26 AM CDT Benign essential HTN MR ORBIT FACE WWO Routine 10/02/2023 9:[address] of paranasal sinuses CT SINUS WO Routine 09/21/2023 12:59 PM CDT Abnormal MRI URINE ALBUMIN TO CREATININE RATIO, RANDOM Routine 09/11/2023 9:22 AM CDT Type 2 diabetes mellitus without complication, without long-term current use of insulin (HC) TSH WITH REFLEX Add On 09/11/2023 8:39 AM CDT Fatigue, unspecified type TESTOSTERONE,TOTAL Add On 09/11/2023 8: 39 AM CDT Fatigue, unspecified type CBC WITH AUTO DIFFERENTIAL Routine 09/11/2023 8:39 AM CDT Gout, unspecified cause, unspecified chronicity, unspecified site URIC ACID Routine 09/11/2023 8:39 AM CDT Gout, unspecified cause, unspecified chronicity, unspecified site BASIC METABOLIC PANEL Routine 09/11/2023 8:39 AM CDT Type 2 diabetes mellitus without complication, without long-term current use of insulin (HC) CBC WITH AUTO DIFFERENTIAL Routine 09/11/2023 8:39 AM CDT Gout, unspecified cause, unspecified chronicity, unspecified site LIPID PANEL W REFLEX MEASURED LDL Routine 09/11/2023 8:39 AM CDT Type 2 diabetes mellitus without complication, without long-term current use of insulin (HC) HEMOGLOBIN A1C Routine 09/11/2023 8:39 AM CDT Type 2 diabetes mellitus without complication, without long-term current use of insulin (HC) ANTI HCV Routine 08/29/2019 9:03 AM CDT Encounter for hepatitis C screening test for low risk patient SCAN-COLONOSCOPY 10/02/2014 8:30 AM CDT from Last 3 Months or Most Recently Relevant to Health Maintenance Results * (ABNORMAL) BASIC METABOLIC PANEL (10/12/2023 7:26 AM CDT) Only the most recent of2 resultswithin the time period is included. SODIUM 141 136 - 145 mmol/L 10/12/2023 2:31 PM CDT [facility] POTASSIUM 4.6 3.5 - 5.1 mmol/L 10/12/2023 2:31 PM CDT [facility] CHLORIDE 105 98 - 107 mmol/L 10/12/2023 2:31 PM CDT [facility] CO2,TOTAL 25 22 - 29 mmol/L 10/12/2023 2:31 PM CDT [facility] ANION GAP 11 5 - 18 10/12/2023 2:31 PM CDT [facility] GLUCOSE 131(H) 70 - 99 mg/dL 10/12/2023 2:31 PM CDT [facility] CALCIUM 9.3 8.8 - 10.2 mg/dL 10/12/2023 2:31 PM CDT [facility] BUN 25(H) 8 - 23 mg/dL 10/12/2023 2:31 PM CDT [facility] CREATININE 1.26(H) 0.70 - 1.20 mg/dL 10/12/2023 2:31 PM CDT [facility] BUN/CREAT RATIO 20 10 - 20 2:31 PM CDT [facility] eGFR 60(L) >90 mL/min/1.7 3m2 10/12/2023 2:31 PM CDT [facility] Comment:As of 2021, eG FR is calculated by the CKD-EPI creatinine equation without race adjustment. ??eGFR can be influenced by muscle mass, exercise, and diet. ??The reported eGFR is an estimation only and is only applicable if the renal function is stable. Blood BLOOD SPECIMEN / Unknown Venipuncture / Unknown 10/12/2023 7:26 AM CDT 10/12/2023 7:26 AM CDT Charles Thomas MD [facility] [address] [place] [address], * MR ORBIT FACE WWO (10/02/2023 9:33 AM CDT) Anatomical Region Laterality Modality ORBITS, FACE Magnetic Resonan ce 10/02/2023 9:33 AM CDT Impressions 10/02/2023 11:30 AM CDT 1. ??The left maxillary sinus abnormality described on the prior CT demonstrates mixed signal intensity on MRI including a nodular focus of intrinsic T1 hyperintensity and adjacent lobular fluid signal intensity. There may be trace peripheral enhancement associated with this lesion, but no minor nodular or masslike enhancement is identified. Specifically, given intrinsic T1 hyperintensity the nodular component cannot be confirmed to be enhancing. Differential considerations include an atypical mucocele with proteinaceous contents or potentially an odontogenic process given the association with adjacent dental roots. Given the lack of enhancement a mucosal neoplasm is considered less likely. ENT evaluation is advised. 2. ??Postoperative changes of the sinonasal region and mild inflammatory changes of the ethmoid air cells similar to the previous CT. 3. ??Senescent changes of the included intracranial compartment. Narrative 10/02/2023 11:30 AM CDT For Patients: As a result of the Cures Act, medical imaging exams and procedure reports are released immediately into your electronic medical record. You may view this report before your referring provider. If you have questions, please contact your health care provider. EXAM: MR ORBIT FACE O LOCATION: [facility] DATE: 10/02/2023 INDICATION: Abnormal CT Of Paranasal Sinuses COMPARISON: CT sinus 09/21/2023 and 05/28/2007 CONTRAST: GADOBUTROL 1 MMOL/ML IV 10 ML VIAL: 10mL TECHNIQUE: Routine multiplanar multisequence MRI of the maxillofacial region without and with IV contrast. FINDINGS: OSSEOUS STRUCTURES/SOFT TISSUES: No evidence for localized soft tissue inflammation or infiltrative process. Osseous structures were better appreciated on the previous CT including bony remodeling and areas of focal dehiscence involving the inferior left maxillary sinus and maxillary alveolar ridge. Associated left maxillary sinus abnormality further detailed below. No definite evidence for a marrow infiltrating process. Normally positioned mandibular condyles. ORBITAL CONTENTS: No intraorbital mass, inflammation, or pathologic enhancement. SINUSES: Mixed signal intensity lobular lesion centered within the inferior alveolar recess of the left maxillary sinus corresponding to findings on the prior CT. There is a similar rounded nodular component anteriorly measuring 1.9 cm in diameter that demonstrates intrinsic T1 hyperintensity and a fluid signal intensity component filling the inferior alveolar recess posteriorly. Remodeling of the adjacent bone as described in detail on the previous CT exam. There may be some faint peripheral enhancement associated with the mucous retention cyst like components of this lesion. The superior portion of the left maxillary sinus demonstrates postsurgical changes related to maxillary antrostomy with minor circumferential mucosal thickening, but is otherwise patent. Additional postoperative changes related to previous functional endoscopic sinus surgery as seen on CT with mild mucosal thickening scattered about the ethmoid air cells bilaterally. VISUALIZED INTRACRANIAL CONTENTS: No diffusion restriction suggestive of recent infarct. No mass, acute hemorrhage, or extra-axial collection identified. Senescent changes including mild to moderate presumed microvascular ischemic change in the cerebral white matter. Mild cerebral volume loss. Procedure Note Murray Escobar MD - 10/02/2023 For Patients: As a result of the Cures Act, medical imagingexams and procedure reports are released immediately into your electronicmedical record. You may view this report before your referring provider.If you have questions, please contact your health care provider. EXAM: MR ORBIT FACE WWO LOCATION: [facility] DATE: 10/02/2023 INDICATION: Abnormal CT Of Paranasal Sinuses COMPARISON: CT sinus 09/21/2023 and 05/28/2007 CONTRAST: GADOBUTROL 1 MMOL/ML IV 10 ML VIAL: 10mL TECHNIQUE: Routine multiplanar multisequence MRI of the maxillofacialregion without and with IV contrast. FINDINGS: OSSEOUS STRUCTURES/SOFT TISSUES: No evidence for localized soft tissueinflammation or infiltrative process. Osseous structures were betterappreciated on the previous CT including bony remodeling and areas offocal dehiscence involving the inferior left maxillary sinus and maxillaryalveolar ridge. Associated left maxillary sinus abnormality furtherdetailed below. No definite evidence for a marrow infiltrating process.Normally positioned mandibular condyles. ORBITAL CONTENTS: No intraorbital mass, inflammation, or pathologicenhancement. SINUSES: Mixed signal intensity lobular lesion centered within theinferior alveolar recess of the left maxillary sinus corresponding tofindings on the prior CT. There is a similar rounded nodular componentanteriorly measuring 1.9 cm in diameter that demonstrates intrinsic [id number] and a fluid signal intensity component filling the inferioralveolar recess posteriorly. Remodeling of the adjacent bone as describedin detail on the previous CT exam. There may be some faint peripheralenhancement associated with the mucous retention cyst like components ofthis lesion. The superior portion of the left maxillary sinus demonstratespostsurgical changes related to maxillary antrostomy with minorcircumferential mucosal thickening, but is otherwise patent. Additionalpostoperative changes related to previous functional endoscopic sinussurgery as seen on CT with mild mucosal thickening scattered about theethmoid air cells bilaterally. VISUALIZED INTRACRANIAL CONTENTS: No diffusion restriction suggestive ofrecent infarct. No mass, acute hemorrhage, or extra-axial collectionidentified. Senescent changes including mild to moderate presumedmicrovascular ischemic change in the cerebral white matter. Mild cerebralvolume loss. IMPRESSION: 1. The left maxillary sinus abnormality described on the prior CTdemonstrates mixed signal intensity on MRI including a nodular focus ofintrinsic T1 hyperintensity and adjacent lobular fluid signal intensity.There may be trace peripheral enhancement associated with this lesion, butno minor nodular or masslike enhancement is identified. Specifically,given intrinsic T1 hyperintensity the nodular component cannot beconfirmed to be enhancing. Differential considerations include an atypicalmucocele with proteinaceous contents or potentially an odontogenic processgiven the association with adjacent dental roots. Given the lack ofenhancement a mucosal neoplasm is considered less likely. ENT evaluationis advised. 2. Postoperative changes of the sinonasal region and mild inflammatorychanges of the ethmoid air cells similar to the previous CT. 3. Senescent changes of the included intracranial compartment. Charles Thomas MD MR * CT SINUS WO (09/21/2023 12:59 PM CDT) Anatomical Region Laterality Modality SINUS Computed Tomogra phy 09/22/2023 3:02 PM CDT Impressions 09/22/2023 3:02 PM CDT 1. Postsurgical changes of partial ethmoidectomies, maxillary antrostomies/uncinectomies and middle turbinate reductions. Surgically created outflow tracts are patent. 2. 36 millimeter lower density lesion within the left maxillary alveolar recess/alveolus with associated bony thinning and dehiscence. Differential considerations include a dentigerous cyst or polyp. An apparent antrochoanal polyp was present within the left maxillary sinus on the comparison 2006 CT. Contrast-enhanced sinus MRI would be useful to further evaluate this lesion. 3. Focal secretions and mucosal thickening within the left greater than right frontoethmoidal recesses, with resultant narrowing of the drainage pathways. Please note that all CT scans at this facility use dose modulation, iterative reconstruction, and/or weight-based dosing when appropriate to reduce radiation dose to as low as reasonably achievable. Dictated by Gabriele Up MD @ 09/22/2023 3:02:49 PM (Electronically Signed) Narrative 09/22/2023 3:02 PM CDT For Patients: ??As a result of the Cures Act, medical imaging exams and procedure reports are released immediately into your electronic medical record. ??You may view this report before your referring provider. ??If you have questions, please contact your health care provider. CLINICAL HISTORY: Abnormal brain MRI. TECHNIQUE: CT of the paranasal sinuses without contrast. COMPARISON: Sinus CT from 05/28/2007. FINDINGS: Anterior sinus group (frontal sinuses and anterior ethmoid air cells/frontoethmoidal recesses: Postop changes of partial ethmoidectomies. Frontal sinuses are well-aerated. Moderate mucosal thickening residual anterior ethmoid air cells with small retention cyst at the left frontoethmoidal recess. Narrowing of the whdy-woppfrx-tnmx-right frontoethmoidal drainage pathways. Posterior sinus group (posterior ethmoid air cells and sphenoid sinuses)/sphenoethmoidal recesses: Ethmoidectomy changes. Sphenoid sinuses are well aerated. Sphenoethmoidal drainage pathways are not obstructed. Maxillary sinuses and ostiomeatal complexes: Postsurgical changes of bilateral maxillary antrostomies and uncinectomies. Right maxillary sinus is well aerated, and the surgically created outflow tract is patent. There is an expansile lower density lesion at the left maxillary sinus alveolar recess/alveolus with associated dehiscence both anteriorly and posterolaterally. It measures up to 36 millimeters in AP dimension, 14 millimeters in TR dimension, and 26 millimeters in CC dimension. There are frothy secretions within the dependent left maxillary sinus. There is thickening and osteitis of the left maxillary sinus superiorly. The surgically created outflow tract is patent. Turbinates: Postsurgical changes of bilateral middle turbinate reductions. Nasal septum: Relatively midline. Nasal cavity: No obstructive lesions. Skullbase, maxilla, TMJ: Keros type 2 on the left. Keros type 2 on the right. No lytic or blastic osseous lesions. No periapical tooth lucencies. Mastoid air cells are clear. Orbital contents: Within normal limits. Imaged intracranial contents: Within normal limits. Imaged soft tissues structures: Within normal limits. Procedure Note Gabriele Up MD - 09/22/2023 For Patients: As a result of the 21st Century Cures Act, medical imagingexams and procedure reports are released immediately into your electronicmedical record. You may view this report before your referring provider.If you have questions, please contact your health care provider. CLINICAL HISTORY: Abnormal brain MRI. TECHNIQUE: CT of the paranasal sinuses without contrast. COMPARISON: Sinus CT from 05/28/2007. FINDINGS: Anterior sinus group (frontal sinuses and anterior ethmoid aircells/frontoethmoidal recesses: Postop changes of partial ethmoidectomies.Frontal sinuses are well- aerated. Moderate mucosal thickening residualanterior ethmoid air cells with small retention cyst at the leftfrontoethmoidal recess. Narrowing of the fxbe-kpovobl-sker-rightfrontoethmoidal drainage pathways. Posterior sinus group (posterior ethmoid air cells and sphenoidsinuses)/sphenoethmoidal recesses: Ethmoidectomy changes. Sphenoid sinusesare well aerated. Sphenoethmoidal drainage pathways are not obstructed. Maxillary sinuses and ostiomeatal complexes: Postsurgical changes ofbilateral maxillary antrostomies and uncinectomies. Right maxillary sinusis well aerated, and the surgically created outflow tract is patent. Thereis an expansile lower density lesion at the left maxillary sinus alveolarrecess/alveolus with associated dehiscence both anteriorly andposterolaterally. It measures up to 36 millimeters in AP dimension, 14millimeters in TR dimension, and 26 millimeters in CC dimension. There arefrothy secretions within the dependent left maxillary sinus. There isthickening and osteitis of the left maxillary sinus superiorly. Thesurgically created outflow tract is patent. Turbinates: Postsurgical changes of bilateral middle turbinate reductions. Nasal septum: Relatively midline. Nasal cavity: No obstructive lesions. Skullbase, maxilla, TMJ: Keros type 2 on the left. Keros type 2 on theright. No lytic or blastic osseous lesions. No periapical tooth lucencies.Mastoid air cells are clear. Orbital contents: Within normal limits. Imaged intracranial contents: Within normal limits. Imaged soft tissues structures: Within normal limits. IMPRESSION: 1. Postsurgical changes of partial ethmoidectomies, maxillaryantrostomies/uncinectomies and middle turbinate reductions. Surgicallycreated outflow tracts are patent. 2. 36 millimeter lower density lesion within the left maxillary alveolarrecess/alveolus with associated bony thinning and dehiscence. Differentialconsiderations include a dentigerous cyst or polyp. An apparentantrochoanal polyp was present within the left maxillary sinus on thecomparison [address] CT. Contrast-enhanced sinus MRI would be useful to furtherevaluate this lesion. 3. Focal secretions and mucosal thickening within the left greater thanright frontoethmoidal recesses, with resultant narrowing of the drainagepathways. Please note that all CT scans at this facility use dose modulation,iterative reconstruction, and/or weight-based dosing when appropriate toreduce radiation dose to as low as reasonably achievable. Dictated by Gabriele Up MD @ 09/22/2023 3:02:49 PM (Electronically Signed) Charles Thomas MD CT * (ABNORMAL) URINE ALBUMIN TO CREATININE RATIO, RANDOM (09/11/2023 9:22 AM CDT) ALB RAND URINE 880.0 mg/L 09/11/2023 9:10 PM CDT [facility] CREATININE,URIN E 1.57 g/L 09/11/2023 9:10 PM CDT [facility] ALBUMIN TO CREATININE RATIO,RAND UR 560.5(H) <30.0 mg/g creat 09/11/2023 9:10 PM CDT [facility] Urine URINE SPECIMEN / Unknown Non-Blood / Unknown 09/11/2023 9:22 AM CDT 09/11/2023 9:22 AM CDT Narrative [facility] - 09/11/2023 9:10 PM CDT If Albumin to Creatinine Ratio is elevated, consider the following: ? Elevations seen with incipient nephropathy associated ?? with diabetes mellitus or hypertension. Stress, exercise,hematuria, ?? and urinary tract infection may also produce elevated results. If clinically indicated, confirm with ?24 Hour Albumin to Creatinine Ratio. ?? Charles Thomas MD [facility]INE [facility] [address] [place] [address], * CBC WITH AUTO DIFFERENTIAL (09/11/2023 8:39 AM CDT) [facility] WHITE BLOOD COUNT 7.0 4.5 - 11.0 thou/cu mm 09/11/2023 8:45 AM CDT [facility] RED BLOOD COUNT 4.35 4.30 - 5.90 mil/cu mm 09/11/2023 8:45 AM CDT [facility] HEMOGLOBIN 13.9 13.5 - 17.5 g/dL 09/11/2023 8:45 AM CDT [facility] HEMATOCRIT 39.4 37.0 - 53.0 % 09/11/2023 8:45 AM CDT [facility] MCV 91 80 - 100 fL 09/11/2023 8:45 AM CDT [facility] MCH 32.0 26.0 - 34.0 pg 09/11/2023 8:45 AM CDT [facility] MCHC 35.3 32.0 - 36.0 g/dL 09/11/2023 8:45 AM CDT [facility] RDW 13.5 11.5 - 15.5 % 09/11/2023 8:45 AM CDT [facility] PLATELET COUNT 220 140 - 440 thou/cu mm 09/11/2023 8:45 AM CDT [facility] MPV 10.5 6.5 - 11.0 fL 09/11/2023 8:45 AM CDT [facility] % NEUT 62.9 % 09/11/2023 8:45 AM CDT [facility] % LYMPH 25.3 % 09/11/2023 8:45 AM CDT [facility] % MONO 10.5 % 09/11/2023 8:45 AM CDT [facility] % EOS 0.7 % 09/11/2023 8:45 AM CDT [facility] % BASO 0.6 % 09/11/2023 8:45 AM CDT [facility] ABSOLUTE NEUTROPHILS 4.4 1.7 - 7.0 thou/cu mm 09/11/2023 8:45 AM CDT [facility] ABSOLUTE LYMPHOCYTES 1.8 0.9 - 2.9 thou/cu mm 09/11/2023 8:45 AM CDT [facility] ABSOLUTE MONOCYTES 0.7 <0.9 thou/cu mm 09/11/2023 8:45 AM CDT [facility] ABSOLUTE EOSINOPHILS 0.1 <0.5 thou/cu mm 09/11/2023 8:45 AM CDT [facility] ABSOLUTE BASOPHILS 0.0 <0.3 thou/cu mm 09/11/2023 8:45 AM CDT [facility] Blood BLOOD SPECIMEN / Unknown Venipuncture / Unknown 09/11/2023 8:39 AM CDT 09/11/2023 8:42 AM CDT Charles Thomas MD HEMATOLOGY Performing Organization Address [facility]/ZIP Co de Phone Number [facility] [address] [place] [address], [place] [phone] * TSH WITH REFLEX (09/11/2023 8:39 AM CDT) TSH 2.71 0.27 - 4.20 uIU/mL 09/13/2023 4:21 PM CDT [facility] Blood BLOOD SPECIMEN / Unknown Venipuncture / Unknown 09/11/2023 8:39 AM CDT 09/11/2023 8:42 AM CDT Narrative [facility] - 09/13/2023 4:21 PM CDT In Adults, TSH values between 5.00 and 10.00 uIU/ml do not necessarily indicate the presence of Hypothyroidism. Correlation with clinical findings such as presence of goiter and/or Thyroperoxidase (TPO) Antibody may be helpful. For more information please refer to KATHY 2004; 291: 228-238. Charles Thomas MD CHEMISTRY Performing Organization Address City/[facility]/ZIP Co de Phone Number [facility] [address] [place] [address], [place] * (ABNORMAL) LIPID PANEL W REFLEX MEASURED LDL (09/11/2023 8:39 AM CDT) CHOLESTEROL,TOTAL 196 100 - 199 mg/dL 09/11/2023 7:33 PM CDT [facility] Comment: Cholesterol, Total Reference Ranges Desirable <200 mg/dL Borderline 200-239 mg/dL High >=240 mg/dL TRIGLYCERIDES 174(H) <150 mg/dL 09/11/2023 7:33 PM CDT [facility] HDL CHOLESTEROL 39(L) >40 mg/dL 7:33 PM CDT [facility] NON-HDL CHOLESTEROL 157(H) <145 mg/dl 09/11/2023 7:33 PM CDT [facility] CHOL/HDL RATIO 5.03(H) <4.50 09/11/2023 7:33 PM CDT [facility] LDL CHOLESTEROL 122 <=130 mg/dL 09/11/2023 7:33 PM CDT [facility] VLDL CHOLESTEROL 35(H) <=30 mg/dL 09/11/2023 7:33 PM CDT [facility] PROVIDER ORDERED STATUS RANDOM 09/11/2023 7:33 PM CDT [facility] Blood BLOOD SPECIMEN / Unknown Venipuncture / Unknown 09/11/2023 8:39 AM CDT 09/11/2023 8:42 AM CDT Charles Thomas MD CHEMISTRY [facility] [address] [place] [address], * URIC ACID (09/11/2023 8:39 AM CDT) URIC ACID 6.1 3.4 - 7.0 mg/dL 09/11/2023 7:33 PM CDT [facility] Blood BLOOD SPECIMEN / Unknown Venipuncture / Unknown 09/11/2023 8:39 AM CDT 09/11/2023 8:42 AM CDT Charles Thomas MD CHEMISTRY Performing Organization Address [facility]/ZIP Co de Phone Number [facility] [address] [place] [address], * TESTOSTERONE,TOTAL (09/11/2023 8:39 AM CDT) TESTOSTERONE,T OTAL 206.0 ng/dL 09/11/2023 8:36 PM CDT [facility] Blood BLOOD SPECIMEN / Unknown Venipuncture / Unknown 09/11/2023 8:39 AM CDT 09/11/2023 8:42 AM CDT Narrative [facility] - 09/11/2023 8:36 PM CDT ? TESTOSTERONE, TOTAL REFERENCE RANGES Age Range ? Female ?Male ?Units 20-50 years ? 8.4-48.1 ?249.0-836.0 ?? ng/dl 50-999 years ?2.9-40.8 ?193.0-740.0 ?? ng/dl Charles Thomas MD CHEMISTRY Performing Organization Address City/State/[facility] Co de Phone Number [facility] [address] * (ABNORMAL) HEMOGLOBIN A1C MONITORING (POCT) (09/11/2023 8:39 AM CDT) HEMOGLOBIN A1C MONITORING (POCT) 6.6(H) <=6.4 % 09/11/2023 8:50 AM CDT [facility] Blood BLOOD SPECIMEN / Unknown Venipuncture / Unknown 09/11/2023 8:39 AM CDT 09/11/2023 8:42 AM CDT Narrative [facility] - 09/11/2023 8:50 AM CDT ? (<=6.9%) ? Indicates good control ? (7.0% to 7.9%) ? Indicates fair control ? (>=8.0%) ? Indicates poor control ?? NOTE: ??These thresholds are guidelines and ?individual targets may vary. Falsely low levels may be seen with: Recent Transfusion, Recent Significant Blood Loss, Hemolytic Diseases, or Falsely elevated levels may be seen with: Untreated Anemias, Splenectomy ? Charles Thomas MD CHEMISTRY Performing Organization Address City/[facility]/ZIP Co de Phone Number [facility] [address] [place] [address], * ANTI HCV (08/29/2019 9:03 AM CDT) HEPATITIS C ANTIBODY Non-React wilver Non-React wilver 08/29/2019 3:05 PM CDT [facility] Comment:Antibodies to HCV no t detected; does not exclude the possibility of exposure to HCV. Blood BLOOD SPECIMEN / Unknown Venipuncture / Unknown 08/29/2019 9:03 AM CDT 08/29/2019 9:03 AM CDT Som Ayoub MD SEND OUTS Performing Organization Address City/[facility]/ZIP Co de Phone Number [facility] [address] [place] [address], * SCAN-COLONOSCOPY (10/02/2014 8:30 AM CDT) Narrative Transcriptions Tre Hutchinson - 10/02/2014 7:40 AM CDT [facility] [address], [address], [place] [address] Patient Name: Murray Figueroa Gender: Male Exam Date: 10/02/2014 Visit Number: [id number] Age: 64 Years 4 Months Date of : 1950 Attending MD: Tre Hutchinson MD Medical Record#: [id number] ----- Procedure: Colonoscopy Indications: Colorectal cancer screening Referring MD: Referral Self Primary MD: Som Ayoub MD Medications: Intra Procedure Medications: Fentanyl given 0.1 mg by IV Midazolam given 2 mg by IV Complications: No immediate complications Procedure: An examination of the heart and lungs was performed and found to be withinacceptable limits. The patient was therefore deemed a reasonablecandidate for endoscopy . The risks and benefits of the procedure were explained to the patient.After obtaining informed consent, the patient was sedated under mydirection and I passed the scope without difficulty via the rectum to the cecum. The appendiceal orificeand ic valve were identified. The scope was retroflexed during theexamination The quality of the prep was excellent (Miralax/Gatorade/2tablets Bisacodyl/Magnesium Citrate). This was a complete examination throughout the entire colon. Findings: Anal canal: hypertrophied papilla The entire colon was normal. * Comments: withdrawal time 8 minutes Impression: Screening colonoscopy Plan Repeat colonoscopy in 10 years. If you have signs or symptoms of lower GI illness or a new diagnosis ofcolon cancer in an immediate family member, you should contact [facility] primary provider to discuss whether your next exam should berepeated sooner. We will attempt to contact you at appropriate intervals via U.S. mail. Wemay not be able to find you or contact you at that time, therefore youshould know that the responsibility for following our recommendation restswith you. If you don't hear from us at the time your procedure is due,please contact our office to schedule an appointment. If your contactinformation should change, please contact our office so that we can updateyour records. Electronically signed by: Tre Hutchinson MD 10/02/2014 Medications: Medication Dose Sig Description Comments atenolol 25 mg tablet 25 mg take 1 tablet by oral route every day doxazosin 1 mg tablet 1 mg take 1 tablet by oral route every day furosemide 20 mg tablet 20 mg take 1 tablet by oral route every day Allergies: Medication Name Ingredient Reaction Comment SULFA (SULFONAMIDE ANTIBIOTICS) Vital Signs: Date Time Systolic Diastolic Height Weight BMI 10/02/2014 8:04 AM 148 95 70 in 250.00 35.90 10/02/2014 8:19 AM 154 87 N/A N/A 10/02/2014 8:30 AM 153 94 N/A N/A 10/02/2014 8:43 AM 163 86 N/A N/A Race: Ethnicity: Not or Preferred Language: Cameroonian cc: Referral Self Som Ayoub MD cc: Gonzales FLORES, Aishwarya Dunbar [facility] [phone] Tre Hutchinson MD OTHER from Last 3 Months or Most Recently Relevant to Health Maintenance Advance Directives * Full Code (Latest Code Status on File) Date Activated Date Inactivated Comments 06/08/2022 12:08 PM 06/08/2022 3:27 PM Question Answer Comments Code Status Discussion: Reviewed Preferences * Full Code Date Activated Date Inactivated Comments 08/22/2007 11:37 AM 08/22/2007 4:46 PM Care Teams Manager Clinical Informatics Relationship Specialty Start Date End Date Charles Thomas MD [address] [place] [address] PCP - General Family Practice 05/05/21
--- OUTSIDE RECORDS SUMMARY | 2023-10-28 14:26 | XMS_ITS | Encounter Summary ---
Author Name Unknown Organization [facility] Address [address] [place] [address] Care Team Providers Care Supervisor Major [employer]liance [employer] Name Role Phone Unavailable Primary Care Provider Unavailabl e Reason for Referral * Outpatient (Routine) - Closed Specialty Diagnoses / Procedures Referred By Jorge Alberto armas Referred To Contact Sleep Medicine Enrico Brooke M.D. [address] [place] [phone] [facility] Referral ID Status Reason Start Date Expiration Date Visits Re quested Visits Authorized [id number] Closed 10/06/2023 04/06/2025 1 1 * Outpatient (Routine) - Closed Specialty Diagnoses / Procedures Referred By Jorge Alberto armas Referred To Contact Diagnoses Apnea Sleep Obstructive Procedures Home sleep apnea test (HSAT) Enrico Brooke M.D. [address] [place] [phone] [facility] Referral ID Status Reason Start Date Expiration Date Visits Re quested Visits Authorized [id number] Closed 10/06/2023 10/05/2024 1 1 Encounter Details Date Type Department Care Team (Late st Contact Info) Description 09/14/2023 Clinical [facility] in [place], [place] [address] [place] [phone] Enrico Brooke M.D. [address] [place] [phone] Social History Tobacco Use Types Packs/Day Years Used Date Smoking Tobacco: Never Smokeless Tobacco: Never Alcohol Use Standard Drinks/Week Comments Yes 2 (1 standard drink = 0.6 oz pur e alcohol) Social Connection and Isolat ion Panel [NHANES] Answer Date Recorded In a typical week, how many times do you talk on the phone with family, friends, or neighbors? Three times a week 01/03/2021 How often do you get togethe r with friends or relatives? Once a week 01/03/2021 How often do you attend chur or baptism services? 1 to 4 times per year 01/03/2021 Do you belong to any clubs o r organizations such as buddhist groups, unions, fraternal or athletic groups, or [...] and heating? 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 [address] [place] [phone] 12/11/2023 2:15 PM CDT Clinical Communication Virtual Review in [place], [place] [address] [place] [phone] Scheduled Referrals Name Type Priority Associated Diagnoses Orde r Schedule Sleep Medicine office visit (clinic) Outpatient Referral Routine Expected: 10/06/2023, Expires: 01/04/2025 documented as of this encounter Results * Home sleep apnea [...] this encounter Visit Diagnoses Diagnosis Apnea Sleep Obstructive- Primary Apnea Sleep Obstructive documented in this encounter
== END 2023-10-28 14:24 | disposition home or self-care (01) ==
LOC: ED 14:23
PROVIDERS: Emergency Provider Family Medicine; PCP Family Medicine
DX: M25.572 Pain in left ankle and joints of left foot (principal); X50.3XXA Overexertion from repetitive movements, initial encounter
CPT/HCPCS: 29515; 73610; 99283; 99284